=== PATIENT | female | born 1980 | race Caucasian/White ===

== ENCOUNTER 2018-12-14 10:23 | Emergency (ER) | payer MEDICARE, MEDICAID, SELFPAY ==
[2018-12-14 10:26] VITALS: BP 173/99; PULSE 110; PULSE 112; RESP 19; TEMP 37.2; O2SAT 98; BMI 26.9
--- NOTE | 2018-12-14 10:36 | CT_ITS ---
STUDY: CT ABDOMEN AND PELVIS WITH CONTRAST REASON FOR EXAM: Female, 38 years old. Abdominal pain. History of Crohn's disease and multiple bowel surgeries RADIATION DOSAGE (If Supplied By Facility): CTDIvol = ( 21.55 ) mGy, DLP = ( 1168.77 ) mGycm TECHNIQUE: Transaxial images were obtained from the dome of the diaphragm to the symphysis pubis without oral contrast. Isovue 300 100CC IV was administered. Sagittal and coronal images were reconstructed. Individualized dose optimization techniques were used for this CT. COMPARISON: None. FINDINGS: The visualized lung bases are unremarkable. The visualized portions of the heart are within normal limits. There is diffuse fatty infiltration of the liver. Normal gallbladder and extrahepatic biliary system. Normal spleen. Normal pancreas. Normal bilateral adrenal glands. Small right renal lower pole hypodense lesion is too small to characterize. Normal left kidney. Normal visualized stomach. There is a colonic enteric anastomosis. There is suggestion of mild wall thickening and mucosal hyperemia of the distal small bowel at the coloenteric anastomosis. No bowel obstruction. Normal abdominal aorta. Normal inferior vena cava. Normal retroperitoneum. Normal urinary bladder. The uterus is retroverted. There is a small focus of air within the endometrial canal, question recent instrumentation. Normal abdominal wall. There is a 5.7 x 2.7 cm osteochondroma from the posterior aspect of the proximal left femoral diaphysis. CT/Abdomen/Pelvis W IV Cont ONLY IMPRESSION: Suggestion of mild wall thickening and mucosal hyperemia of the distal small bowel at the coloenteric anastomosis, this may represent active inflammation in the setting of known Crohn's disease. No bowel obstruction. Osteochondroma noted at the posterior aspect of the proximal left femoral diaphysis. Hepatic steatosis. Electronically Signed: Brooke Saeed, at 13:01 EST Tel , Service support ,
[2018-12-14 11:11] LABS: Mucous, Urine 0 SEEN /hpf (<or=2+)
[2018-12-14 11:14] LABS: Color, Urine Yellow (Yellow); Glucose, Dipstick Normal (Normal); Ketone-Dipstick Negative (Negative); Leukocyte Esterase-Dipstick 100 /ul (Negative); Nitrite-Dipstick Negative (Negative); Occult Blood-Urine 10 /ul (Negative); Protein-Dipstick Negative (Negative); Urine Bilirubin Dipstick Negative (Negative); Urine Clarity Sl. Cloudy (Clear); Urine Urobilinogen Normal (Normal)
[2018-12-14 11:15] LABS: Internal QC Validated? YES +Cl - CLEAR BKGD; Pregnancy, Urine Negative Negative
[2018-12-14 11:20] LABS: Bacteria 1+ /hpf (None Seen); Red Blood Cells-Urine 0-5 SEEN /hpf (0-5); Squamous Epithelial Cells - UA 0-5 SEEN /hpf (5-10); White Blood Cells 10-25 SEEN /hpf (0-5)
[2018-12-14 11:24] LABS: Absolute Lymphocyte Count 3.64 X10^3/ul (0.83-4.51); Absolute Neutrophil Count 5.1 X10^3/uL (2.0-7.7); Basophil# 0.06 X10^3/uL; Basophil% 0.6 % (0-1); Eosinophil# 0.48 X10^3/uL; Eosinophils% 4.8 % (0-5); Hematocrit 39.1 % (37-47); Hemoglobin 12.3 g/dl (12.0-15.0); Lymphocyte # 3.64 X10^3/ul (4.0); Lymphocyte % 36.3 % (19-41); Mean Corp Hgb Conc 31.5 g/gl (32-36); Mean Corpuscular Hgb 28.3 pg (27.0-32.0); Mean Corpuscular Volume 89.9 fL (81-99); Monocyte# 0.62 X10^3/uL; Monocyte% 6.2 % (0-10); Neutrophil # 5.14 X10^3/uL (2.7-7.7); Neutrophil % 51.1 % (47-70); Platelet Count 308 K/mm3 (150-450); RBC Distribution Width CV 14.3 % (11.6-14.6); RBC Distribution Width SD 46.3 fl (35.1-43.9); Red Blood Count 4.35 M/mm3 (4.2-5.4)
--- NOTE | 2018-12-14 11:24 | ED.DCSUM_ITS ---
- ER Visit Summary Date of Service: 12/14/18 Chief Complaint: Abdominal pain History of Present Illness: The patient is a 38 F who has a history of Crohn's disease but is not on any medications presents with abdominal pain, nausea, and vomiting. Patient has a history of recurrent small bowel obstruction. She states that she last had which she was told was curative bowel surgery when she was in [place] 8 years ago. She recently moved up to the [facility]. She has not established with GI yet. She was on Humira for years ago, but has been out of medication since then. Over the past 2 days, she had increasing abdominal pain nausea, and vomiting. She states she had one episode of loose watery diarrhea. She states she felt very bloated. She denies any fevers or chills. Physical Examination: Vital signs reviewed General: Well-nourished, well-developed Head: Normocephalic, atraumatic Eyes: Pupils equal and reactive, extraocular muscles intact Neck, supple, no lymphadenopathy Heart: Regular rate and rhythm Respiratory: No distress, clear bilaterally Abdomen: Soft, distended and diffusely tender without rebound or guarding, no peritoneal signs Back: Nontender Extremities: Nontender, no edema, no cords Skin: Normal color no rash Neuro: Alert and oriented, no focal or lateralizing deficits Test Results: [] Emergency Department Course and Treatment: IV was established. The patient was given IV fluids and analgesics. She was also given antiemetics. Her pain improved but then returned. Labs were relatively unremarkable except for mildly decreased bicarb of 20 and a lactic of 2.7. My suspicion is that this is likely secondary to dehydration and her vomiting. She underwent CT of abdomen pelvis. It does show moderate Crohn's flare of the distal ileum. There is no evidence of small bowel obstruction. At this time, I do feel the patient is in require admission given her history of Crohn's disease and she is an active flare with nausea and vomiting. She is also dehydrated. Unfortunately, we do not have GI coverage. She has been without any GI medication or GI follow-up for over 4 years. She has rather significant Crohn's disease. I do feel that she would best be served at a tertiary facility. Patient was discussed with [facility]. Treatment Plan: [] Disposition: Transfer Impression: 1. Acute Crohn's exacerbation 2. Nausea vomiting 3. Lactic acidosis This note was generated with [employer] dictation software. It may contain incorrect words, spelling, and punctuation that were not noted in review of the chart prior to signing ED Disposition - Plan for ED Patient: Referrals: Care Physician,No Primary [Primary Care Provider] -
[2018-12-14 11:25] LABS: POSITIVE COUNT NO; POSITIVE DIFFERENTIAL NO; POSITIVE MORPHOLOGY NO
[2018-12-14] MEDS: 0.9% Normal Saline 1,000 ML 1000 ML IV (11:25)
[2018-12-14] MEDS: Ondansetron 4 MG/2 ML Vial IV (11:25)
[2018-12-14] MEDS: HYDROmorphone 1 MG/ML Syringe IV ×3 (11:32→16:16)
[2018-12-14 11:47] LABS: AST(SGOT) 39 U/L (15-37); Alanine Aminotransfer ALT/SGPT 50 U/L (13-56); Albumin, Serum 3.6 g/dL (3.2-5.0); Alkaline Phosphatase 110 U/L (45-117); Anion Gap 12 (5-15); BUN 9 mg/dL (7-18); BUN/Creat Ratio 13.5 RATIO (10-20); Calcium,Total 8.6 mg/dL (8.5-10.1); Chloride 108 mmol/L (98-107); Creatinine, Serum 0.67 mg/dL (0.55-1.02); EST Glomerular Filtration Rate 105 mL/min (>60); Est Glom Filt Rate - Afr Amer 127 mL/min (>60); Estimated Creatinine Clearance 118.98 ml/min; Globulin 3.6 g/dL (2.2-4.2); Glucose 84 mg/dL (74-106); Lipase 350 U/L (73-393); Potassium 4.3 mmol/L (3.5-5.1); Protein, Total 7.2 g/dL (6.4-8.2); Sodium Level 140 mmol/L (136-145)
[2018-12-14 11:49] LABS: Lactic Acid 2.7 mmol/L (0.4-2.0)
[2018-12-14] MEDS: MethylPREDNISolone 125 MG/2 ML Vial 60 MG IV (13:24)
[2018-12-14] MEDS: 0.9% Normal Saline 1,000 ML 999 ML IV (13:27)
[2018-12-14 13:28] VITALS: BP 140/99; PULSE 100; RESP 18; O2SAT 96
[2018-12-14 14:08] VITALS: BP 125/96; PULSE 102; RESP 18; O2SAT 98
--- NOTE | 2018-12-14 14:28 | NURSING ---
[facility] ER TO ER [phone]
--- NOTE | 2018-12-14 14:59 | NURSING ---
CALLED [facility]. ETA 45 MIN TO 1 HR
[2018-12-14 15:21] LABS: Reflex Lactate? Y
--- NOTE | 2018-12-14 16:18 | ED.RN ---
walked in to medicate pt for pain. pt eating a bag of chips. pt well aware of npo status. dr royal made aware. pt asked to get rid of chips. pt places back in bag
[2018-12-14 16:20] VITALS: BP 127/87; BP 133/93; PULSE 100; RESP 18; O2SAT 96; O2SAT 97
== END 2018-12-14 17:01 | disposition short-term general hospital (02) ==
PROVIDERS: Emergency Provider Emergency Medicine
DX: K50.90 Crohn's disease, unspecified, without complications (principal); R11.2 Nausea with vomiting, unspecified; E87.2 Acidosis; E86.0 Dehydration
CPT/HCPCS: 74177; 80053; 81001; 81025; 83605; 83690; 85025; 96361; 96365; 96375; 96376; 99284; J7030; Q9967; A4216; J2405

== ENCOUNTER 2019-01-15 17:52 | Emergency (ER) | payer MEDICARE, MEDICAID, SELFPAY ==
[2019-01-15 17:53] VITALS: BP 104/84; PULSE 127; RESP 18; TEMP 37.1; O2SAT 97; BMI 24.0
[2019-01-15 17:55] VITALS: BP 104/84; PULSE 127; RESP 18; TEMP 37.1; O2SAT 97
[2019-01-15 18:55] VITALS: BP 125/82; PULSE 108; RESP 13; TEMP 37; O2SAT 96
--- NOTE | 2019-01-15 18:58 | CT_ITS ---
STUDY: CT ABDOMEN AND PELVIS WITH CONTRAST REASON FOR EXAM: Female, 38 years old. Nausea and vomiting. Rectal bleeding. History of Crohn's disease. RADIATION DOSAGE (If Supplied By Facility): CTDIvol = ( 12.97 ) mGy, DLP = ( 725.86 ) mGycm TECHNIQUE: Transaxial images were obtained from the dome of the diaphragm to the symphysis pubis without oral contrast. 100ml ml of Isovue 370 contrast was administered. Sagittal and coronal images were reconstructed. Individualized dose optimization techniques were used for this CT. COMPARISON: 12/14/2018 FINDINGS: The visualized lung bases are clear. The visualized portions of the heart and pericardium are within normal limits. There are no calcified gallstones present. The liver is within normal limits. There are no suspicious hepatic lesions. The spleen is normal in size. The pancreas is within normal limits. The adrenal glands are within normal limits. There are no renal or ureteral stones. There is no hydronephrosis. There are no focal renal lesions. The patient is status post gastric sleeve procedure. There are postsurgical changes noted from prior bowel resection. There is no bowel obstruction. There is bowel thickening in the sigmoid colon which is consistent with colitis The appendix is not visualized, but there are no findings to suggest acute appendicitis. The aorta is normal in caliber. There is no abdominal or pelvic free air, free fluid, fluid collection or lymphadenopathy. There are no destructive osseous lesions. CT/Abdomen/Pelvis W IV Cont ONLY IMPRESSION: Colitis in the sigmoid colon. No bowel obstruction. No free air, free fluid or fluid collection. Electronically Signed: Gagan Jha, at 20:08 EDT Tel , Service support ,
[2019-01-15 19:00] VITALS: BP 123/94; PULSE 109; RESP 15; TEMP 36.9; O2SAT 98
--- NOTE | 2019-01-15 19:02 | ED.DCSUM_ITS ---
- ER Visit Summary Date of Service: 01/15/19 Chief Complaint: Abdominal pain History of Present Illness: The patient is a 38 F presenting with abdominal pain. Patient states she is having nausea and vomiting. She has been unable to tolerate p.o. for the past 3 days. She was recently admitted to [facility] and had a gastric sleeve per Dr. Hennessy on January 03. She was sent home on TPN. Since that time she has not been able to tolerate p.o. She started having blood in her stool as well today. She has history of Crohn's disease and has had blood in her stool in the past. She spoke with Dr. Hennsesy today was advised to come to the ED for further evaluation. Physical Examination: Vitals are stable. Patient is afebrile. Alert no acute distress. HEENT exam is unremarkable. Neck is supple. Lungs are clear and equal bilaterally. Heart is regular rate and rhythm. Abdomen is soft diffuse tenderness, voluntary guarding, no rebound Extremities are unremarkable. Skin is warm and dry. No focal neurologic deficit. Remainder of exam is unremarkable. Emergency Department Course and Treatment: Patient was given Dilaudid, Phenergan IV. CBC unremarkable other than hemoglobin 11.1. Chemistries unremarkable. Urinalysis unremarkable. CT abdomen pelvis with IV only contrast shows colitis in the sigmoid colon. No bowel obstruction. No free air, free fluid or fluid collection. On reevaluation, patient continues to have pain and nausea. She is given repeated doses of Dilaudid and Phenergan. She is still unable to tolerate p.o. Discussed with [facility] for transfer. Disposition: Transfer [facility] Impression: Postoperative abdominal pain, intractable nausea vomiting This note was generated with [employer] dictation software. It may contain incorrect words, spelling, and punctuation that were not noted in review of the chart prior to signing ED Disposition - Plan for ED Patient: Disposition: [facility] Referrals: Care Physician,No Primary [Primary Care Provider] -
[2019-01-15] MEDS: 0.9% Normal Saline 1,000 ML 1000 ML IV (19:21)
[2019-01-15] MEDS: proMETHazine 25 MG/ML Syringe 6.25 MG IV ×2 (19:21→22:17)
[2019-01-15] MEDS: HYDROmorphone 1 MG/ML Syringe IV ×2 (19:21→22:17)
[2019-01-15 19:35] LABS: Absolute Neutrophil Count 4.4 X10^3/uL (2.0-7.7); Basophil# 0.05 X10^3/uL; Basophil% 0.6 % (0-1); Eosinophils% 2.5 % (0-5); Hematocrit 34.3 % (37-47); Hemoglobin 11.1 g/dl (12.0-15.0); Lymphocyte % 34.7 % (19-41); Mean Corp Hgb Conc 32.4 g/gl (32-36); Mean Corpuscular Hgb 27.9 pg (27.0-32.0); Mean Corpuscular Volume 86.2 fL (81-99); Monocyte# 0.54 X10^3/uL; Monocyte% 6.7 % (0-10); Neutrophil # 4.41 X10^3/uL (2.7-7.7); Neutrophil % 54.6 % (47-70); Platelet Count 345 K/mm3 (150-450); RBC Distribution Width CV 13.6 % (11.6-14.6); RBC Distribution Width SD 42.1 fl (35.1-43.9); Red Blood Count 3.98 M/mm3 (4.2-5.4); White Blood Count 8.1 K/mm3 (4.4-11.0)
[2019-01-15 19:36] LABS: POSITIVE COUNT NO; POSITIVE DIFFERENTIAL NO; POSITIVE MORPHOLOGY NO
[2019-01-15 19:40] LABS: AST(SGOT) 12 U/L (15-37); Alanine Aminotransfer ALT/SGPT 19 U/L (13-56); Albumin, Serum 3.8 g/dL (3.2-5.0); Alkaline Phosphatase 116 U/L (45-117); Anion Gap 8 (5-15); BUN 18 mg/dL (7-18); BUN/Creat Ratio 30.4 RATIO (10-20); Calcium,Total 8.9 mg/dL (8.5-10.1); Chloride 110 mmol/L (98-107); Creatinine, Serum 0.59 mg/dL (0.55-1.02); EST Glomerular Filtration Rate 120 mL/min (>60); Est Glom Filt Rate - Afr Amer 146 mL/min (>60); Estimated Creatinine Clearance 135.11 ml/min; Globulin 3.7 g/dL (2.2-4.2); Glucose 83 mg/dL (74-106); Potassium 3.6 mmol/L (3.5-5.1); Protein, Total 7.5 g/dL (6.4-8.2); Sodium Level 141 mmol/L (136-145)
[2019-01-15 20:00] VITALS: BP 103/81; PULSE 108; RESP 16; TEMP 37.3; O2SAT 95
[2019-01-15 20:15] LABS: Lactic Acid 1.8 mmol/L (0.4-2.0)
[2019-01-15 20:46] LABS: Color, Urine Yellow (Yellow); Glucose, Dipstick Normal (Normal); Ketone-Dipstick Negative (Negative); Leukocyte Esterase-Dipstick 25 /ul (Negative); Mucous, Urine 0 SEEN /hpf (<or=2+); Nitrite-Dipstick Negative (Negative); Occult Blood-Urine Negative /ul (Negative); Protein-Dipstick 15 mg/dl (Negative); Red Blood Cells-Urine 0 SEEN /hpf (0-5); Urine Bilirubin Dipstick Negative (Negative); Urine Clarity Sl. Cloudy (Clear); Urine Urobilinogen Normal (Normal)
[2019-01-15 21:35] VITALS: BP 115/82; PULSE 110; RESP 14; TEMP 37.3; O2SAT 95
[2019-01-15 21:36] LABS: Bacteria RARE /hpf (None Seen); Squamous Epithelial Cells - UA 0-5 SEEN /hpf (5-10); White Blood Cells 0-5 SEEN /hpf (0-5)
== END 2019-01-15 22:40 | disposition short-term general hospital (02) ==
PROVIDERS: Emergency Provider Emergency Medicine
DX: R10.9 Unspecified abdominal pain (principal); G89.18 Other acute postprocedural pain; R11.2 Nausea with vomiting, unspecified; K52.9 Noninfective gastroenteritis and colitis, unspecified; Z98.84 Bariatric surgery status; K50.90 Crohn's disease, unspecified, without complications
CPT/HCPCS: 36592; 74177; 80053; 81001; 83605; 85025; 96361; 96374; 96375; 96376; 99283; J7030; Q9967; A4216

== ENCOUNTER 2019-02-28 10:24 | Emergency (ER) | payer MEDICARE, MEDICAID, SELFPAY ==
[2019-02-28 10:24] VITALS: BP 119/88; PULSE 109; RESP 18; TEMP 36.6; O2SAT 99; BMI 24.0
--- NOTE | 2019-02-28 10:44 | CT_ITS ---
STUDY: CT ABDOMEN AND PELVIS WITH CONTRAST REASON FOR EXAM: Female, 38 years old. Abdominal pain with nausea and vomiting. The patient has a history of Crohn's disease. Minimal small and large bowel resections. RADIATION DOSAGE (If Supplied By Facility): CTDIvol = ( 10.84 ) mGy, DLP = ( 649.31 ) mGycm TECHNIQUE: Transaxial images were obtained from the dome of the diaphragm to the symphysis pubis without oral contrast. 100mL IV Isovue 300 was administered. Sagittal and coronal images were reconstructed. Individualized dose optimization techniques were used for this CT. COMPARISON: Comparison is made with prior study dated January 15, 2019. FINDINGS: The visualized lung bases are unremarkable. The visualized portions of the heart are within normal limits. There is decreased attenuation of the liver consistent with steatosis. Normal gallbladder and extrahepatic biliary system. Normal spleen. Normal pancreas. Normal bilateral adrenal glands. Normal right kidney. Normal left kidney. The patient is status post gastric sleeve procedure. Postsurgical changes are seen in the right lower quadrant involving the terminal ileum and cecal region. There is stable mild degree of mural thickening of the cecum and proximal ascending colon with fluid within the bowel. Mild residual thickening of the rectosigmoid colon although this has improved as compared to prior study. There is non-visualization of the appendix. Normal abdominal aorta. Normal inferior vena cava. Normal retroperitoneum. Normal urinary bladder. There is absence of the uterus consistent with a prior hysterectomy. Normal abdominal wall. Normal osseous structures. CT/Abdomen/Pelvis W IV Cont ONLY IMPRESSION: Essentially stable examination. Mild residual thickening of the rectosigmoid colon. Electronically Signed: Hebert El, at 12:19 EDT , Service support ,
--- NOTE | 2019-02-28 10:51 | ED.VISSUMM ---
- ER Visit Summary Date of Service: 02/28/19 Chief Complaint: Abdominal pain, vomiting History of Present Illness: The patient is a 38 F who has a history of Crohn's disease as well as gastroparesis. She had a gastric sleeve surgery performed in December because a third of my stomach was . Patient was sent home on TPN and has been on that since her surgery. She was seen here in early January for colitis and was unable to tolerate anything by mouth. She was transferred to [facility] at that time. Patient states her abdominal pain and vomiting resolved but she does remain on TPN for nutrition. Her pain recurred 5 days ago, her abdomen feels bloated, and she is been unable to tolerate anything by mouth again with recurrent vomiting. She did have a bowel movement this morning. She reports subjective chills but has not measured a fever. Physical Examination: Blood pressure is 119/88, temperature 98, heart rate 109, respiratory rate 18, pulse ox 99% on room air. Head and neck examination is unremarkable. Heart is slightly tachycardic and regular. Lung sounds are clear. Abdomen is soft. Abdomen does appear slightly distended. She has upper abdominal tenderness on exam with no guarding or rebound. Hypoactive bowel sounds are present. Extremity examination reveals a PICC line in place in the left upper extremity. Test Results: CBC was normal white count differential. Hemoglobin is 11.3. Chemistry studies unremarkable. LFTs significant only for alk phos of 193. Lipase normal. Urinalysis shows no sign of acute infection. CT abdomen pelvis with IV contrast is essentially stable. There is mild residual thickening of the rectosigmoid colon. Emergency Department Course and Treatment: Patient was given Dilaudid and Phenergan along with IV fluids. On repeat evaluation she does feel improved. She will be given a short course of [place] and Zofran for pain at home. Treatment Plan: [] Disposition: Discharge Impression: 1. Vomiting, improved 2. Abdominal pain, uncertain etiology This note was generated with [employer] dictation software. It may contain incorrect words, spelling, and punctuation that were not noted in review of the chart prior to signing ED Disposition - Plan for ED Patient: Disposition: Home or Assisted Living Instructions: ED Abdominal Pain Unkn Cause Prescriptions: Hydrocodone Bitart/Apap 5-325 [[place] 5MG-325MG] 1 tablet PO Q6H PRN PRN 3 Days #10 tablet PRN Reason: Pain Ondansetron [Zofran Odt] 4 mg PO Q8H PRN PRN #10 tablet PRN Reason: Nausea Additional Instructions: Follow-up with your surgeon in [place] in 1-2 weeks
[2019-02-28] MEDS: 0.9% Normal Saline 1,000 ML 150 ML IV (11:05)
[2019-02-28] MEDS: HYDROmorphone 1 MG/ML Syringe 0.5 MG IV (11:05)
[2019-02-28] MEDS: proMETHazine 25 MG/ML Syringe 12.5 MG IV ×2 (11:06→13:23)
[2019-02-28 11:37] LABS: Absolute Lymphocyte Count 3.46 X10^3/ul (0.83-4.51); Absolute Neutrophil Count 5.1 X10^3/uL (2.0-7.7); Basophil# 0.06 X10^3/uL; Basophil% 0.6 % (0-1); Eosinophil# 0.32 X10^3/uL; Eosinophils% 3.3 % (0-5); Hematocrit 35.3 % (37-47); Hemoglobin 11.3 g/dl (12.0-15.0); Lymphocyte # 3.46 X10^3/ul (4.0); Lymphocyte % 35.7 % (19-41); Mean Corpuscular Hgb 26.8 pg (27.0-32.0); Mean Corpuscular Volume 83.8 fL (81-99); Mean Platelet Vol. 10.2 fl (6.2-12.0); Monocyte# 0.71 X10^3/uL; Monocyte% 7.3 % (0-10); Neutrophil # 5.13 X10^3/uL (2.7-7.7); Neutrophil % 52.9 % (47-70); POSITIVE COUNT NO; POSITIVE DIFFERENTIAL NO; POSITIVE MORPHOLOGY NO; Platelet Count 253 K/mm3 (150-450); RBC Distribution Width CV 13.7 % (11.6-14.6); RBC Distribution Width SD 41.6 fl (35.1-43.9); Red Blood Count 4.21 M/mm3 (4.2-5.4); White Blood Count 9.7 K/mm3 (4.4-11.0)
[2019-02-28 11:44] LABS: AST(SGOT) 14 U/L (15-37); Alanine Aminotransfer ALT/SGPT 33 U/L (13-56); Albumin, Serum 3.5 g/dL (3.2-5.0); Alkaline Phosphatase 193 U/L (45-117); Anion Gap 7 (5-15); BUN 20 mg/dL (7-18); BUN/Creat Ratio 36.9 RATIO (10-20); Bilirubin, Direct 0.09 mg/dL (0.00-0.30); Calcium,Total 8.9 mg/dL (8.5-10.1); Chloride 107 mmol/L (98-107); Creatinine, Serum 0.54 mg/dL (0.55-1.02); EST Glomerular Filtration Rate 133 mL/min (>60); Est Glom Filt Rate - Afr Amer 161 mL/min (>60); Estimated Creatinine Clearance 142.49 ml/min; Globulin 4.2 g/dL (2.2-4.2); Glucose 94 mg/dL (74-106); Lipase 320 U/L (73-393); Potassium 4.1 mmol/L (3.5-5.1); Protein, Total 7.7 g/dL (6.4-8.2); Sodium Level 138 mmol/L (136-145)
[2019-02-28 13:12] LABS: Mucous, Urine 0 SEEN /hpf (<or=2+); Red Blood Cells-Urine 0 SEEN /hpf (0-5)
[2019-02-28 13:14] LABS: Color, Urine Yellow (Yellow); Glucose, Dipstick Normal (Normal); Ketone-Dipstick Negative (Negative); Leukocyte Esterase-Dipstick 500 /ul (Negative); Nitrite-Dipstick Negative (Negative); Occult Blood-Urine Negative /ul (Negative); Protein-Dipstick 15 mg/dl (Negative); Urine Bilirubin Dipstick Negative (Negative); Urine Clarity Sl. Cloudy (Clear); Urine Urobilinogen Normal (Normal)
[2019-02-28 13:18] VITALS: RESP 18
[2019-02-28 13:22] LABS: Bacteria RARE /hpf (None Seen); Squamous Epithelial Cells - UA 0-5 SEEN /hpf (5-10); White Blood Cells 0-5 SEEN /hpf (0-5)
[2019-02-28] MEDS: HYDROmorphone 0.5 MG/0.5 ML SYRINGE IV (13:24)
[2019-02-28 14:52] VITALS: PULSE 74; RESP 16; O2SAT 97
== END 2019-02-28 14:55 | disposition home or self-care (01) ==
PROVIDERS: Emergency Provider Emergency Medicine
DX: R10.9 Unspecified abdominal pain (principal); R11.2 Nausea with vomiting, unspecified; K50.90 Crohn's disease, unspecified, without complications; K31.84 Gastroparesis
CPT/HCPCS: 36592; 74177; 80048; 80076; 81001; 83690; 85025; 96361; 96374; 96375; 96376; 99282; J7030; Q9967; A4216

== ENCOUNTER → 2019-05-01 12:39 | Outpatient (CLI) | payer MEDICARE, MEDICAID, SELFPAY ==
[2019-05-01 13:16] LABS: Hematocrit 30.8 % (37-47); Hemoglobin 9.9 g/dL (12.0-15.0); Mean Corp Hgb Conc 32.1 g/dL (32-36); Mean Corpuscular Hgb 25.8 pg (27.0-32.0); Mean Corpuscular Volume 80.4 fL (81-99); Platelet Count 293 K/mm3 (150-450); RBC Distribution Width CV 15.2 % (11.6-14.6); RBC Distribution Width SD 43.9 fl (35.1-43.9); Red Blood Count 3.83 M/mm3 (4.2-5.4); White Blood Count 8.4 K/mm3 (4.4-11.0)
[2019-05-01 13:31] LABS: ALB/GLOB Ratio 0.9 RATIO (0.9-2.4); AST(SGOT) 8 U/L (15-37); Alanine Aminotransfer ALT/SGPT 19 U/L (13-56); Albumin, Serum 3.5 g/dL (3.2-5.0); Alkaline Phosphatase 164 U/L (45-117); Anion Gap 7 (5-15); BUN 23 mg/dL (7-18); BUN/Creat Ratio 44.7 RATIO (10-20); Calcium,Total 8.7 mg/dL (8.5-10.1); Chloride 108 mmol/L (98-107); Creatinine, Serum 0.52 mg/dL (0.55-1.02); EST Glomerular Filtration Rate 141 mL/min (>60); Est Glom Filt Rate - Afr Amer 171 mL/min (>60); Globulin 3.8 g/dL (2.2-4.2); Glucose 96 mg/dL (74-106); Magnesium 2.2 mg/dL (1.6-2.6); Potassium 3.8 mmol/L (3.5-5.1); Protein, Total 7.3 g/dL (6.4-8.2); Sodium Level 140 mmol/L (136-145); Triglycerides 91 mg/dL
== END ==
PROVIDERS: Referring Provider Physician Assistant; Visit Provider Physician Assistant
DX: K31.84 Gastroparesis (principal)
CPT/HCPCS: 36592; 80053; 83735; 84100; 84478; 85027; A4216

== ENCOUNTER → 2019-05-10 08:41 | Outpatient (CLI) | payer MEDICARE, MEDICAID, SELFPAY ==
[2019-05-10 09:41] LABS: Hematocrit 30.7 % (37-47); Hemoglobin 9.5 g/dL (12.0-15.0); Mean Corp Hgb Conc 30.9 g/dL (32-36); Mean Corpuscular Hgb 24.6 pg (27.0-32.0); Mean Corpuscular Volume 79.5 fL (81-99); Mean Platelet Vol. 10.3 fl (6.2-12.0); Platelet Count 289 K/mm3 (150-450); RBC Distribution Width CV 15.9 % (11.6-14.6); RBC Distribution Width SD 45.1 fl (35.1-43.9); Red Blood Count 3.86 M/mm3 (4.2-5.4); White Blood Count 7.7 K/mm3 (4.4-11.0)
[2019-05-10 09:56] LABS: ALB/GLOB Ratio 0.9 RATIO (0.9-2.4); AST(SGOT) 11 U/L (15-37); Alanine Aminotransfer ALT/SGPT 28 U/L (13-56); Albumin, Serum 3.4 g/dL (3.2-5.0); Alkaline Phosphatase 176 U/L (45-117); Anion Gap 8 (5-15); BUN 20 mg/dL (7-18); BUN/Creat Ratio 31.4 RATIO (10-20); Calcium,Total 8.8 mg/dL (8.5-10.1); Chloride 109 mmol/L (98-107); Creatinine, Serum 0.64 mg/dL (0.55-1.02); EST Glomerular Filtration Rate 110 mL/min (>60); Est Glom Filt Rate - Afr Amer 134 mL/min (>60); Globulin 3.9 g/dL (2.2-4.2); Glucose 95 mg/dL (74-106); Magnesium 1.9 mg/dL (1.6-2.6); Phosphorus 4.9 mg/dL (2.5-4.9); Potassium 3.5 mmol/L (3.5-5.1); Protein, Total 7.3 g/dL (6.4-8.2); Sodium Level 142 mmol/L (136-145); Triglycerides 68 mg/dL
== END ==
PROVIDERS: Family Provider Internal Medicine; PCP Internal Medicine; Referring Provider Physician Assistant; Visit Provider Physician Assistant
DX: Z45.2 Encounter for adjustment and management of vascular access device (principal); K56.609 Unspecified intestinal obstruction, unspecified as to partial versus complete obstruction; K31.84 Gastroparesis; E43 Unspecified severe protein-calorie malnutrition
CPT/HCPCS: 36592; 80053; 83735; 84100; 84478; 85027; A4216

== ENCOUNTER → 2019-05-17 15:05 | Outpatient (CLI) | payer MEDICARE, SELFPAY ==
[2019-05-17 16:02] LABS: Hematocrit 29.6 % (37-47); Hemoglobin 9.2 g/dL (12.0-15.0); Mean Corp Hgb Conc 31.1 g/dL (32-36); Mean Corpuscular Hgb 24.7 pg (27.0-32.0); Mean Corpuscular Volume 79.6 fL (81-99); Mean Platelet Vol. 10.6 fl (6.2-12.0); Platelet Count 197 K/mm3 (150-450); RBC Distribution Width CV 16.1 % (11.6-14.6); RBC Distribution Width SD 46.4 fl (35.1-43.9); Red Blood Count 3.72 M/mm3 (4.2-5.4); White Blood Count 6.8 K/mm3 (4.4-11.0)
[2019-05-17 16:10] LABS: ALB/GLOB Ratio 0.9 RATIO (0.9-2.4); AST(SGOT) 10 U/L (15-37); Alanine Aminotransfer ALT/SGPT 19 U/L (13-56); Albumin, Serum 3.3 g/dL (3.2-5.0); Alkaline Phosphatase 152 U/L (45-117); Anion Gap 7 (5-15); BUN 21 mg/dL (7-18); BUN/Creat Ratio 37.7 RATIO (10-20); Calcium,Total 8.5 mg/dL (8.5-10.1); Chloride 111 mmol/L (98-107); Creatinine, Serum 0.56 mg/dL (0.55-1.02); EST Glomerular Filtration Rate 129 mL/min (>60); Est Glom Filt Rate - Afr Amer 156 mL/min (>60); Globulin 3.8 g/dL (2.2-4.2); Glucose 92 mg/dL (74-106); Phosphorus 2.9 mg/dL (2.5-4.9); Protein, Total 7.1 g/dL (6.4-8.2); Sodium Level 142 mmol/L (136-145); Triglycerides 46 mg/dL
== END ==
PROVIDERS: Referring Provider Physician Assistant; Visit Provider Physician Assistant
DX: Z45.2 Encounter for adjustment and management of vascular access device (principal); K56.609 Unspecified intestinal obstruction, unspecified as to partial versus complete obstruction; K31.84 Gastroparesis; E43 Unspecified severe protein-calorie malnutrition
CPT/HCPCS: 80053; 83735; 84100; 84478; 85027; A4216

== ENCOUNTER → 2019-05-22 10:33 | Outpatient (CLI) | payer MEDICARE, MEDICAID, SELFPAY ==
[2019-05-18 17:42] VITALS: BMI 21.5
[2019-05-22 11:09] LABS: Hematocrit 29.7 % (37-47); Hemoglobin 9.3 g/dL (12.0-15.0); Mean Corp Hgb Conc 31.3 g/dL (32-36); Mean Corpuscular Volume 79.8 fL (81-99); Platelet Count 202 K/mm3 (150-450); RBC Distribution Width CV 15.9 % (11.6-14.6); RBC Distribution Width SD 45.6 fl (35.1-43.9); Red Blood Count 3.72 M/mm3 (4.2-5.4); White Blood Count 7.9 K/mm3 (4.4-11.0)
[2019-05-22 11:25] LABS: ALB/GLOB Ratio 0.8 RATIO (0.9-2.4); AST(SGOT) 18 U/L (15-37); Alanine Aminotransfer ALT/SGPT 58 U/L (13-56); Albumin, Serum 3.2 g/dL (3.2-5.0); Alkaline Phosphatase 171 U/L (45-117); Anion Gap 5 (5-15); BUN 20 mg/dL (7-18); BUN/Creat Ratio 40.2 RATIO (10-20); Calcium,Total 8.2 mg/dL (8.5-10.1); Chloride 109 mmol/L (98-107); EST Glomerular Filtration Rate 147 mL/min (>60); Est Glom Filt Rate - Afr Amer 178 mL/min (>60); Globulin 3.8 g/dL (2.2-4.2); Glucose 89 mg/dL (74-106); Magnesium 2.1 mg/dL (1.6-2.6); Phosphorus 3.5 mg/dL (2.5-4.9); Sodium Level 140 mmol/L (136-145); Triglycerides 73 mg/dL
== END ==
PROVIDERS: PCP Internal Medicine; Referring Provider Physician Assistant; Visit Provider Physician Assistant
DX: Z45.2 Encounter for adjustment and management of vascular access device (principal); K56.609 Unspecified intestinal obstruction, unspecified as to partial versus complete obstruction; K31.84 Gastroparesis; E43 Unspecified severe protein-calorie malnutrition
CPT/HCPCS: 36591; 80053; 83735; 84100; 84478; 85027; A4216

== ENCOUNTER → 2019-05-30 11:55 | Outpatient (CLI) | payer MEDICARE, MEDICAID, SELFPAY ==
[2019-05-18 17:42] VITALS: BMI 21.5
[2019-05-30 12:55] LABS: Hematocrit 30.3 % (37-47); Hemoglobin 9.4 g/dL (12.0-15.0); Mean Corpuscular Hgb 24.5 pg (27.0-32.0); Mean Corpuscular Volume 79.1 fL (81-99); Mean Platelet Vol. 10.7 fl (6.2-12.0); Platelet Count 271 K/mm3 (150-450); RBC Distribution Width CV 16.2 % (11.6-14.6); RBC Distribution Width SD 46.1 fl (35.1-43.9); Red Blood Count 3.83 M/mm3 (4.2-5.4); White Blood Count 7.5 K/mm3 (4.4-11.0)
[2019-05-30 13:13] LABS: ALB/GLOB Ratio 0.8 RATIO (0.9-2.4); AST(SGOT) 28 U/L (15-37); Alanine Aminotransfer ALT/SGPT 104 U/L (13-56); Albumin, Serum 3.2 g/dL (3.2-5.0); Alkaline Phosphatase 203 U/L (45-117); Anion Gap 7 (5-15); BUN 19 mg/dL (7-18); BUN/Creat Ratio 34.1 RATIO (10-20); Calcium,Total 8.4 mg/dL (8.5-10.1); Chloride 110 mmol/L (98-107); Creatinine, Serum 0.56 mg/dL (0.55-1.02); EST Glomerular Filtration Rate 129 mL/min (>60); Est Glom Filt Rate - Afr Amer 156 mL/min (>60); Glucose 86 mg/dL (74-106); Magnesium 2.3 mg/dL (1.6-2.6); Phosphorus 3.3 mg/dL (2.5-4.9); Protein, Total 7.2 g/dL (6.4-8.2); Sodium Level 141 mmol/L (136-145); Triglycerides 93 mg/dL
== END ==
PROVIDERS: PCP Internal Medicine; Referring Provider Physician Assistant; Visit Provider Physician Assistant
DX: Z45.2 Encounter for adjustment and management of vascular access device (principal); E43 Unspecified severe protein-calorie malnutrition
CPT/HCPCS: 36592; 80053; 83735; 84100; 84478; 85027; A4216

== ENCOUNTER → 2019-06-05 13:51 | Outpatient (CLI) | payer MEDICARE, MEDICAID, SELFPAY ==
[2019-05-18 17:42] VITALS: BMI 21.5
[2019-06-05 14:33] LABS: Hematocrit 30.1 % (37-47); Hemoglobin 9.3 g/dL (12.0-15.0); Mean Corp Hgb Conc 30.9 g/dL (32-36); Mean Corpuscular Hgb 24.5 pg (27.0-32.0); Mean Corpuscular Volume 79.4 fL (81-99); Mean Platelet Vol. 10.9 fl (6.2-12.0); Platelet Count 244 K/mm3 (150-450); RBC Distribution Width CV 16.5 % (11.6-14.6); RBC Distribution Width SD 46.5 fl (35.1-43.9); Red Blood Count 3.79 M/mm3 (4.2-5.4); White Blood Count 6.5 K/mm3 (4.4-11.0)
[2019-06-05 14:47] LABS: ALB/GLOB Ratio 0.8 RATIO (0.9-2.4); AST(SGOT) 16 U/L (15-37); Albumin, Serum 3.2 g/dL (3.2-5.0); Alkaline Phosphatase 192 U/L (45-117); BUN 19 mg/dL (7-18); BUN/Creat Ratio 30.9 RATIO (10-20); Calcium,Total 8.4 mg/dL (8.5-10.1); Creatinine, Serum 0.62 mg/dL (0.55-1.02); EST Glomerular Filtration Rate 115 mL/min (>60); Est Glom Filt Rate - Afr Amer 139 mL/min (>60); Glucose 97 mg/dL (74-106); Phosphorus 2.9 mg/dL (2.5-4.9); Protein, Total 7.2 g/dL (6.4-8.2)
[2019-06-05 14:48] LABS: Alanine Aminotransfer ALT/SGPT 69 U/L (13-56); Anion Gap 10 (5-15); Chloride 113 mmol/L (98-107); Magnesium 2.1 mg/dL (1.6-2.6); Potassium 3.4 mmol/L (3.5-5.1); Sodium Level 145 mmol/L (136-145); Triglycerides 86 mg/dL
== END ==
PROVIDERS: PCP Internal Medicine; Referring Provider Physician Assistant; Visit Provider Physician Assistant
DX: Z45.2 Encounter for adjustment and management of vascular access device (principal); K56.609 Unspecified intestinal obstruction, unspecified as to partial versus complete obstruction; K31.84 Gastroparesis; E43 Unspecified severe protein-calorie malnutrition
CPT/HCPCS: 36592; 80053; 83735; 84100; 84478; 85027; A4216

== ENCOUNTER → 2019-06-15 13:23 | Outpatient (CLI) | payer MEDICARE, MEDICAID, SELFPAY ==
[2019-05-18 17:42] VITALS: BMI 21.5
[2019-06-15 14:12] LABS: Hematocrit 29.8 % (37-47); Hemoglobin 9.1 g/dL (12.0-15.0); Mean Corp Hgb Conc 30.5 g/dL (32-36); Mean Corpuscular Hgb 24.1 pg (27.0-32.0); Mean Corpuscular Volume 78.8 fL (81-99); Mean Platelet Vol. 10.4 fl (6.2-12.0); Platelet Count 294 K/mm3 (150-450); RBC Distribution Width SD 47.8 fl (35.1-43.9); Red Blood Count 3.78 M/mm3 (4.2-5.4); White Blood Count 7.8 K/mm3 (4.4-11.0)
[2019-06-15 14:30] LABS: ALB/GLOB Ratio 0.7 RATIO (0.9-2.4); AST(SGOT) 9 U/L (15-37); Alanine Aminotransfer ALT/SGPT 28 U/L (13-56); Albumin, Serum 3.1 g/dL (3.2-5.0); Alkaline Phosphatase 186 U/L (45-117); Anion Gap 6 (5-15); BUN 20 mg/dL (7-18); BUN/Creat Ratio 36.6 RATIO (10-20); Calcium,Total 8.5 mg/dL (8.5-10.1); Chloride 110 mmol/L (98-107); Creatinine, Serum 0.55 mg/dL (0.55-1.02); EST Glomerular Filtration Rate 132 mL/min (>60); Est Glom Filt Rate - Afr Amer 159 mL/min (>60); Globulin 4.2 g/dL (2.2-4.2); Glucose 91 mg/dL (74-106); Magnesium 2.1 mg/dL (1.6-2.6); Phosphorus 3.2 mg/dL (2.5-4.9); Potassium 4.1 mmol/L (3.5-5.1); Protein, Total 7.3 g/dL (6.4-8.2); Sodium Level 141 mmol/L (136-145); Triglycerides 71 mg/dL
== END ==
PROVIDERS: PCP Internal Medicine; Referring Provider Physician Assistant; Visit Provider Physician Assistant
DX: Z45.2 Encounter for adjustment and management of vascular access device (principal); K56.609 Unspecified intestinal obstruction, unspecified as to partial versus complete obstruction; K31.84 Gastroparesis; E43 Unspecified severe protein-calorie malnutrition
CPT/HCPCS: 36592; 80053; 83735; 84100; 84478; 85027; A4216

== ENCOUNTER → 2019-06-19 13:56 | Outpatient (CLI) | payer MEDICARE, MEDICAID, SELFPAY ==
[2019-05-18 17:42] VITALS: BMI 21.5
[2019-06-19 14:38] LABS: Hemoglobin 9.4 g/dL (12.0-15.0); Mean Corp Hgb Conc 30.3 g/dL (32-36); Mean Corpuscular Volume 79.1 fL (81-99); Platelet Count 329 K/mm3 (150-450); RBC Distribution Width CV 16.4 % (11.6-14.6); RBC Distribution Width SD 46.7 fl (35.1-43.9); Red Blood Count 3.92 M/mm3 (4.2-5.4); White Blood Count 7.2 K/mm3 (4.4-11.0)
[2019-06-19 14:53] LABS: ALB/GLOB Ratio 0.8 RATIO (0.9-2.4); AST(SGOT) 11 U/L (15-37); Alanine Aminotransfer ALT/SGPT 22 U/L (13-56); Albumin, Serum 3.2 g/dL (3.2-5.0); Alkaline Phosphatase 170 U/L (45-117); Anion Gap 7 (5-15); BUN 20 mg/dL (7-18); BUN/Creat Ratio 35.7 RATIO (10-20); Calcium,Total 8.3 mg/dL (8.5-10.1); Chloride 109 mmol/L (98-107); Creatinine, Serum 0.56 mg/dL (0.55-1.02); EST Glomerular Filtration Rate 128 mL/min (>60); Est Glom Filt Rate - Afr Amer 155 mL/min (>60); Glucose 86 mg/dL (74-106); Magnesium 2.1 mg/dL (1.6-2.6); Phosphorus 3.5 mg/dL (2.5-4.9); Protein, Total 7.2 g/dL (6.4-8.2); Sodium Level 140 mmol/L (136-145); Triglycerides 49 mg/dL
== END ==
PROVIDERS: Family Provider Internal Medicine; PCP Internal Medicine; Referring Provider Physician Assistant; Visit Provider Physician Assistant
DX: Z45.2 Encounter for adjustment and management of vascular access device (principal); K56.609 Unspecified intestinal obstruction, unspecified as to partial versus complete obstruction; K31.84 Gastroparesis; E43 Unspecified severe protein-calorie malnutrition
CPT/HCPCS: 36415; 36592; 80053; 83735; 84100; 84478; 85027; A4216

== ENCOUNTER → 2019-06-27 13:01 | Outpatient (CLI) | payer MEDICARE, MEDICAID, SELFPAY ==
[2019-06-21 13:27] VITALS: BMI 21.5
[2019-06-27 13:55] LABS: Hemoglobin 9.4 g/dL (12.0-15.0); Mean Corp Hgb Conc 30.3 g/dL (32-36); Mean Corpuscular Hgb 23.8 pg (27.0-32.0); Mean Corpuscular Volume 78.5 fL (81-99); Mean Platelet Vol. 10.2 fl (6.2-12.0); Platelet Count 290 K/mm3 (150-450); RBC Distribution Width CV 16.2 % (11.6-14.6); RBC Distribution Width SD 45.9 fl (35.1-43.9); Red Blood Count 3.95 M/mm3 (4.2-5.4); White Blood Count 7.1 K/mm3 (4.4-11.0)
[2019-06-27 14:12] LABS: ALB/GLOB Ratio 0.8 RATIO (0.9-2.4); AST(SGOT) 12 U/L (15-37); Alanine Aminotransfer ALT/SGPT 26 U/L (13-56); Albumin, Serum 3.2 g/dL (3.2-5.0); Alkaline Phosphatase 177 U/L (45-117); Anion Gap 6 (5-15); BUN 19 mg/dL (7-18); BUN/Creat Ratio 33.9 RATIO (10-20); Calcium,Total 8.5 mg/dL (8.5-10.1); Chloride 108 mmol/L (98-107); Creatinine, Serum 0.56 mg/dL (0.55-1.02); EST Glomerular Filtration Rate 128 mL/min (>60); Est Glom Filt Rate - Afr Amer 155 mL/min (>60); Globulin 3.9 g/dL (2.2-4.2); Glucose 88 mg/dL (74-106); Magnesium 2.2 mg/dL (1.6-2.6); Phosphorus 3.9 mg/dL (2.5-4.9); Potassium 4.3 mmol/L (3.5-5.1); Protein, Total 7.1 g/dL (6.4-8.2); Sodium Level 140 mmol/L (136-145); Triglycerides 67 mg/dL
== END ==
PROVIDERS: Family Provider Internal Medicine; PCP Internal Medicine; Referring Provider Physician Assistant; Visit Provider Physician Assistant
DX: Z45.2 Encounter for adjustment and management of vascular access device (principal); K56.609 Unspecified intestinal obstruction, unspecified as to partial versus complete obstruction; K31.84 Gastroparesis; E43 Unspecified severe protein-calorie malnutrition
CPT/HCPCS: 36592; 80053; 83735; 84100; 84478; 85027; A4216

== ENCOUNTER → 2019-07-03 12:41 | Outpatient (CLI) | payer MEDICARE, MEDICAID, SELFPAY ==
[2019-06-21 13:27] VITALS: BMI 21.5
[2019-07-03 13:28] LABS: Hematocrit 31.4 % (37-47); Hemoglobin 9.4 g/dL (12.0-15.0); Mean Corp Hgb Conc 29.9 g/dL (32-36); Mean Corpuscular Hgb 23.1 pg (27.0-32.0); Mean Corpuscular Volume 77.1 fL (81-99); Platelet Count 237 K/mm3 (150-450); RBC Distribution Width CV 16.5 % (11.6-14.6); RBC Distribution Width SD 46.1 fl (35.1-43.9); Red Blood Count 4.07 M/mm3 (4.2-5.4)
[2019-07-03 13:45] LABS: ALB/GLOB Ratio 0.9 RATIO (0.9-2.4); AST(SGOT) 18 U/L (15-37); Alanine Aminotransfer ALT/SGPT 31 U/L (13-56); Albumin, Serum 3.5 g/dL (3.2-5.0); Alkaline Phosphatase 194 U/L (45-117); Anion Gap 7 (5-15); BUN 19 mg/dL (7-18); BUN/Creat Ratio 27.9 RATIO (10-20); Calcium,Total 8.9 mg/dL (8.5-10.1); Chloride 108 mmol/L (98-107); Creatinine, Serum 0.68 mg/dL (0.55-1.02); EST Glomerular Filtration Rate 102 mL/min (>60); Est Glom Filt Rate - Afr Amer 124 mL/min (>60); Globulin 4.1 g/dL (2.2-4.2); Glucose 85 mg/dL (74-106); Magnesium 1.9 mg/dL (1.6-2.6); Phosphorus 4.5 mg/dL (2.5-4.9); Potassium 3.4 mmol/L (3.5-5.1); Protein, Total 7.6 g/dL (6.4-8.2); Sodium Level 141 mmol/L (136-145); Triglycerides 119 mg/dL
== END ==
PROVIDERS: Family Provider Internal Medicine; PCP Internal Medicine; Referring Provider Physician Assistant; Visit Provider Physician Assistant
DX: Z45.2 Encounter for adjustment and management of vascular access device (principal); K56.609 Unspecified intestinal obstruction, unspecified as to partial versus complete obstruction; K31.84 Gastroparesis; E43 Unspecified severe protein-calorie malnutrition
CPT/HCPCS: 36592; 80053; 83735; 84100; 84478; 85027; A4216

== ENCOUNTER → 2019-07-11 12:40 | Outpatient (CLI) | payer MEDICARE, MEDICAID, SELFPAY ==
[2019-06-21 13:27] VITALS: BMI 21.5
[2019-07-11 13:04] LABS: Hematocrit 29.7 % (37-47); Hemoglobin 9.1 g/dL (12.0-15.0); Mean Corp Hgb Conc 30.6 g/dL (32-36); Mean Corpuscular Volume 78.4 fL (81-99); Mean Platelet Vol. 9.9 fl (6.2-12.0); Platelet Count 253 K/mm3 (150-450); RBC Distribution Width SD 49.1 fl (35.1-43.9); Red Blood Count 3.79 M/mm3 (4.2-5.4); White Blood Count 5.9 K/mm3 (4.4-11.0)
[2019-07-11 13:21] LABS: AST(SGOT) 10 U/L (15-37); Alanine Aminotransfer ALT/SGPT 15 U/L (13-56); Albumin, Serum 3.4 g/dL (3.2-5.0); Alkaline Phosphatase 157 U/L (45-117); Anion Gap 10 (5-15); BUN 14 mg/dL (7-18); BUN/Creat Ratio 24.1 RATIO (10-20); Calcium,Total 8.5 mg/dL (8.5-10.1); Chloride 110 mmol/L (98-107); Creatinine, Serum 0.58 mg/dL (0.55-1.02); EST Glomerular Filtration Rate 122 mL/min (>60); Est Glom Filt Rate - Afr Amer 148 mL/min (>60); Globulin 3.5 g/dL (2.2-4.2); Glucose 89 mg/dL (74-106); Magnesium 2.1 mg/dL (1.6-2.6); Phosphorus 3.6 mg/dL (2.5-4.9); Potassium 3.7 mmol/L (3.5-5.1); Protein, Total 6.9 g/dL (6.4-8.2); Sodium Level 145 mmol/L (136-145); Triglycerides 81 mg/dL
== END ==
PROVIDERS: Family Provider Internal Medicine; PCP Internal Medicine; Referring Provider Physician Assistant; Visit Provider Physician Assistant
DX: Z45.2 Encounter for adjustment and management of vascular access device (principal); K56.609 Unspecified intestinal obstruction, unspecified as to partial versus complete obstruction; K31.84 Gastroparesis; E43 Unspecified severe protein-calorie malnutrition
CPT/HCPCS: 36415; 36592; 80053; 83735; 84100; 84478; 85027; A4216

== ENCOUNTER → 2019-07-17 | Outpatient (CLI) | payer MEDICARE, MEDICAID, SELFPAY ==
[2019-06-21 13:27] VITALS: BMI 21.5
[2019-07-17 13:26] LABS: Hematocrit 30.7 % (37-47); Hemoglobin 9.4 g/dL (12.0-15.0); Mean Corp Hgb Conc 30.6 g/dL (32-36); Mean Corpuscular Hgb 23.6 pg (27.0-32.0); Mean Corpuscular Volume 76.9 fL (81-99); Mean Platelet Vol. 9.9 fl (6.2-12.0); Platelet Count 273 K/mm3 (150-450); RBC Distribution Width SD 50.1 fl (35.1-43.9); Red Blood Count 3.99 M/mm3 (4.2-5.4); White Blood Count 5.3 K/mm3 (4.4-11.0)
[2019-07-17 13:45] LABS: ALB/GLOB Ratio 0.9 RATIO (0.9-2.4); AST(SGOT) 12 U/L (15-37); Alanine Aminotransfer ALT/SGPT 21 U/L (13-56); Albumin, Serum 3.4 g/dL (3.2-5.0); Alkaline Phosphatase 178 U/L (45-117); Anion Gap 8 (5-15); BUN 16 mg/dL (7-18); BUN/Creat Ratio 24.8 RATIO (10-20); Calcium,Total 8.7 mg/dL (8.5-10.1); Chloride 107 mmol/L (98-107); Creatinine, Serum 0.64 mg/dL (0.55-1.02); EST Glomerular Filtration Rate 109 mL/min (>60); Est Glom Filt Rate - Afr Amer 132 mL/min (>60); Globulin 3.9 g/dL (2.2-4.2); Glucose 96 mg/dL (74-106); Phosphorus 3.9 mg/dL (2.5-4.9); Potassium 3.6 mmol/L (3.5-5.1); Protein, Total 7.3 g/dL (6.4-8.2); Sodium Level 139 mmol/L (136-145); Triglycerides 116 mg/dL
== END | disposition home or self-care (01) ==
LOC: MEDOUTP 12:39
PROVIDERS: Family Provider Internal Medicine; PCP Internal Medicine; Referring Provider Physician Assistant; Visit Provider Physician Assistant
DX: K56.609 Unspecified intestinal obstruction, unspecified as to partial versus complete obstruction (principal); E43 Unspecified severe protein-calorie malnutrition; K31.84 Gastroparesis; Z45.2 Encounter for adjustment and management of vascular access device
CPT/HCPCS: 36592; 80053; 83735; 84100; 84478; 85027; A4216

== ENCOUNTER → 2019-07-26 12:04 | Outpatient (CLI) | payer MEDICARE, MEDICAID, SELFPAY ==
[2019-06-21 13:27] VITALS: BMI 21.5
[2019-07-26 13:13] LABS: Hematocrit 31.5 % (37-47); Hemoglobin 9.7 g/dL (12.0-15.0); Mean Corp Hgb Conc 30.8 g/dL (32-36); Mean Corpuscular Hgb 23.4 pg (27.0-32.0); Mean Corpuscular Volume 76.1 fL (81-99); Mean Platelet Vol. 10.2 fl (6.2-12.0); Platelet Count 275 K/mm3 (150-450); RBC Distribution Width CV 17.8 % (11.6-14.6); RBC Distribution Width SD 48.8 fl (35.1-43.9); Red Blood Count 4.14 M/mm3 (4.2-5.4); White Blood Count 7.4 K/mm3 (4.4-11.0)
[2019-07-26 13:28] LABS: Albumin, Serum 3.6 g/dL (3.2-5.0); BUN 18 mg/dL (7-18); BUN/Creat Ratio 28.6 RATIO (10-20); Creatinine, Serum 0.63 mg/dL (0.55-1.02); EST Glomerular Filtration Rate 112 mL/min (>60); Est Glom Filt Rate - Afr Amer 135 mL/min (>60); Glucose 87 mg/dL (74-106); Protein, Total 7.6 g/dL (6.4-8.2)
[2019-07-26 13:29] LABS: ALB/GLOB Ratio 0.9 RATIO (0.9-2.4); AST(SGOT) 31 U/L (15-37); Alanine Aminotransfer ALT/SGPT 59 U/L (13-56); Alkaline Phosphatase 197 U/L (45-117); Anion Gap 10 (5-15); Calcium,Total 8.6 mg/dL (8.5-10.1); Chloride 109 mmol/L (98-107); Magnesium 2.2 mg/dL (1.6-2.6); Phosphorus 3.8 mg/dL (2.5-4.9); Potassium 3.2 mmol/L (3.5-5.1); Sodium Level 143 mmol/L (136-145); Triglycerides 128 mg/dL
== END ==
PROVIDERS: Family Provider Internal Medicine; PCP Internal Medicine; Visit Provider Physician Assistant
DX: Z45.2 Encounter for adjustment and management of vascular access device (principal); K56.609 Unspecified intestinal obstruction, unspecified as to partial versus complete obstruction; E43 Unspecified severe protein-calorie malnutrition; K31.84 Gastroparesis
CPT/HCPCS: 36592; 80053; 83735; 84100; 84478; 85027; A4216

== ENCOUNTER → 2019-07-28 08:14 | Outpatient (CLI) | payer MEDICARE, MEDICAID, SELFPAY ==
[2019-06-21 13:27] VITALS: BMI 21.5
--- NOTE | 2019-07-28 08:20 | RAD_ITS ---
PROCEDURE: SMALL BOWEL SERIES DATE OF EXAMINATION: July 28, 2019. INDICATION: Female, 39 years old. History of Crohn's disease with the multiple prior bowel resections. Patient presents with abdominal pain and nausea. Prior gastric sleeve surgery. PHYSICIAN: Hebert El M.D. FLUOROSCOPY TIME (if supplied): (0:32) minutes/seconds TECHNIQUE: Radiographic and fluoroscopic images were taken of the small intestine following the ingestion of barium. COMPARISON: None. FINDINGS: A preliminary supine KUB was obtained. There is an unremarkable bowel gas pattern. Fecal material is present throughout the colon. Surgical sutures are seen in the right lower quadrant. Phleboliths are present within the pelvis. The osseous structures are normal. The patient orally ingested approximately 12 ounces of thin barium Normal visualized fundus, body, and antrum of the stomach. Normal duodenal bulb, C-loop, and proximal jejunum. There is evidence of a surgical resection of the distal small bowel. Surgical deformity at the region of the terminal ileum as it enters the cecum. There is no evidence of obstruction. No evidence of narrowing or mucosal abnormality. There is a normal motor pattern with barium reaching the colon within approximately 20 minutes. Spot films under fluoroscopic observation demonstrated a normal terminal ileum and ileocecal valve. RAD/Small Bowel Series Only IMPRESSION: Prior small bowel resection in the distal small bowel with postoperative changes. No acute abnormality is seen. Electronically Signed: Hebert El, at 9:58 EDT , Service support ,
== END ==
PROVIDERS: Family Provider Internal Medicine; PCP Internal Medicine; Referring Provider Internal Medicine Gastroenterology; Visit Provider Internal Medicine Gastroenterology
DX: K50.90 Crohn's disease, unspecified, without complications (principal)
CPT/HCPCS: 74250

== ENCOUNTER → 2019-08-01 08:06 | Outpatient (CLI) | payer MEDICARE, MEDICAID, SELFPAY ==
[2019-06-21 13:27] VITALS: BMI 21.5
[2019-08-01 08:45] LABS: Hematocrit 31.5 % (37-47); Hemoglobin 9.5 g/dL (12.0-15.0); Mean Corp Hgb Conc 30.2 g/dL (32-36); Mean Corpuscular Hgb 23.2 pg (27.0-32.0); Mean Corpuscular Volume 76.8 fL (81-99); Mean Platelet Vol. 10.1 fl (6.2-12.0); Platelet Count 276 K/mm3 (150-450); RBC Distribution Width CV 18.5 % (11.6-14.6); RBC Distribution Width SD 50.4 fl (35.1-43.9); White Blood Count 8.9 K/mm3 (4.4-11.0)
[2019-08-01 09:06] LABS: ALB/GLOB Ratio 0.9 RATIO (0.9-2.4); AST(SGOT) 19 U/L (15-37); Alanine Aminotransfer ALT/SGPT 29 U/L (13-56); Albumin, Serum 3.5 g/dL (3.2-5.0); Alkaline Phosphatase 171 U/L (45-117); Anion Gap 4 (5-15); BUN 16 mg/dL (7-18); BUN/Creat Ratio 25.8 RATIO (10-20); Calcium,Total 8.9 mg/dL (8.5-10.1); Chloride 110 mmol/L (98-107); Creatinine, Serum 0.62 mg/dL (0.55-1.02); EST Glomerular Filtration Rate 114 mL/min (>60); Est Glom Filt Rate - Afr Amer 138 mL/min (>60); Globulin 3.7 g/dL (2.2-4.2); Glucose 84 mg/dL (74-106); Magnesium 1.9 mg/dL (1.6-2.6); Phosphorus 4.4 mg/dL (2.5-4.9); Potassium 3.3 mmol/L (3.5-5.1); Protein, Total 7.2 g/dL (6.4-8.2); Sodium Level 141 mmol/L (136-145); Triglycerides 127 mg/dL
== END ==
PROVIDERS: Family Provider Internal Medicine; PCP Internal Medicine; Referring Provider Physician Assistant; Visit Provider Physician Assistant
DX: Z45.2 Encounter for adjustment and management of vascular access device (principal); K56.609 Unspecified intestinal obstruction, unspecified as to partial versus complete obstruction; K31.84 Gastroparesis; E43 Unspecified severe protein-calorie malnutrition
CPT/HCPCS: 36592; 80053; 83735; 84100; 84478; 85027; A4216

== ENCOUNTER → 2019-08-07 | Outpatient (CLI) | payer MEDICARE, MEDICAID, SELFPAY ==
[2019-06-21 13:27] VITALS: BMI 21.5
[2019-08-07 14:18] LABS: Hematocrit 30.2 % (37-47); Hemoglobin 9.2 g/dL (12.0-15.0); Mean Corp Hgb Conc 30.5 g/dL (32-36); Mean Corpuscular Hgb 23.4 pg (27.0-32.0); Mean Corpuscular Volume 76.8 fL (81-99); Mean Platelet Vol. 10.2 fl (6.2-12.0); Platelet Count 257 K/mm3 (150-450); RBC Distribution Width CV 17.9 % (11.6-14.6); RBC Distribution Width SD 49.7 fl (35.1-43.9); Red Blood Count 3.93 M/mm3 (4.2-5.4); White Blood Count 6.9 K/mm3 (4.4-11.0)
[2019-08-07 14:35] LABS: ALB/GLOB Ratio 0.8 RATIO (0.9-2.4); AST(SGOT) 18 U/L (15-37); Alanine Aminotransfer ALT/SGPT 39 U/L (13-56); Albumin, Serum 3.2 g/dL (3.2-5.0); Alkaline Phosphatase 182 U/L (45-117); Anion Gap 7 (5-15); BUN 15 mg/dL (7-18); BUN/Creat Ratio 22.8 RATIO (10-20); Calcium,Total 8.4 mg/dL (8.5-10.1); Chloride 108 mmol/L (98-107); Creatinine, Serum 0.66 mg/dL (0.55-1.02); EST Glomerular Filtration Rate 106 mL/min (>60); Est Glom Filt Rate - Afr Amer 129 mL/min (>60); Glucose 117 mg/dL (74-106); Magnesium 2.3 mg/dL (1.6-2.6); Phosphorus 3.6 mg/dL (2.5-4.9); Potassium 3.4 mmol/L (3.5-5.1); Protein, Total 7.2 g/dL (6.4-8.2); Sodium Level 141 mmol/L (136-145); Triglycerides 86 mg/dL
== END | disposition home or self-care (01) ==
LOC: MEDOUTP 13:12
PROVIDERS: Family Provider Internal Medicine; PCP Internal Medicine; Referring Provider Physician Assistant; Visit Provider Physician Assistant
DX: E43 Unspecified severe protein-calorie malnutrition (principal); K56.609 Unspecified intestinal obstruction, unspecified as to partial versus complete obstruction; K31.84 Gastroparesis; Z45.2 Encounter for adjustment and management of vascular access device
CPT/HCPCS: 36592; 80053; 83735; 84100; 84478; 85027; A4216

== ENCOUNTER → 2019-08-14 08:05 | Outpatient (CLI) | payer MEDICARE, MEDICAID, SELFPAY ==
[2019-06-21 13:27] VITALS: BMI 21.5
[2019-08-14 08:39] LABS: Hematocrit 31.1 % (37-47); Hemoglobin 9.5 g/dL (12.0-15.0); Mean Corp Hgb Conc 30.5 g/dL (32-36); Mean Corpuscular Hgb 23.1 pg (27.0-32.0); Mean Corpuscular Volume 75.5 fL (81-99); Mean Platelet Vol. 9.5 fl (6.2-12.0); Platelet Count 289 K/mm3 (150-450); RBC Distribution Width CV 17.7 % (11.6-14.6); RBC Distribution Width SD 48.4 fl (35.1-43.9); Red Blood Count 4.12 M/mm3 (4.2-5.4); White Blood Count 6.9 K/mm3 (4.4-11.0)
[2019-08-14 09:21] LABS: ALB/GLOB Ratio 0.9 RATIO (0.9-2.4); AST(SGOT) 67 U/L (15-37); Alanine Aminotransfer ALT/SGPT 115 U/L (13-56); Albumin, Serum 3.4 g/dL (3.2-5.0); Alkaline Phosphatase 195 U/L (45-117); Anion Gap 9 (5-15); BUN 14 mg/dL (7-18); BUN/Creat Ratio 23.3 RATIO (10-20); Calcium,Total 8.5 mg/dL (8.5-10.1); Chloride 109 mmol/L (98-107); EST Glomerular Filtration Rate 118 mL/min (>60); Est Glom Filt Rate - Afr Amer 143 mL/min (>60); Globulin 3.8 g/dL (2.2-4.2); Glucose 91 mg/dL (74-106); Phosphorus 4.1 mg/dL (2.5-4.9); Potassium 3.2 mmol/L (3.5-5.1); Protein, Total 7.2 g/dL (6.4-8.2); Sodium Level 143 mmol/L (136-145); Triglycerides 93 mg/dL
== END ==
PROVIDERS: Family Provider Internal Medicine; PCP Internal Medicine; Referring Provider Physician Assistant; Visit Provider Physician Assistant
DX: Z45.2 Encounter for adjustment and management of vascular access device (principal); E43 Unspecified severe protein-calorie malnutrition; K56.609 Unspecified intestinal obstruction, unspecified as to partial versus complete obstruction; K31.84 Gastroparesis
CPT/HCPCS: 36592; 80053; 83735; 84100; 84478; 85027; A4216

== ENCOUNTER 2019-08-16 08:11 | Emergency (ER) | payer MEDICARE, MEDICAID, SELFPAY ==
[2019-06-21 13:27] VITALS: BMI 21.5
[2019-08-16 08:12] VITALS: BP 99/40; PULSE 115; RESP 12; TEMP 36.5; O2SAT 100; BMI 20.7
--- NOTE | 2019-08-16 08:45 | ED.VISSUMM ---
- ER Visit Summary Date of Service: 08/16/19 Chief Complaint: Abdominal pain History of Present Illness: The patient is a 39 F history of prior gastroparesis and Crohn's disease. Also history: CA with partial colectomy, appendectomy, hysterectomy and gastric sleeve. Patient states that she started having abdominal pain yesterday morning. Nausea and dry heaves. She has basically because of loose stools from her surgeries. And Crohn's. She states since her gastric sleeve in November of this year she has had intermittent fevers for no apparent reason. She is had 3 different abdominal CAT scans done at this facility this year all of which were basically unremarkable other than some mild inflammation associated with possible Crohn's. She denies any dysuria or hematuria. States the pain is primary or lower quadrants of her abdomen radiates over her left flank. She states since her gastric surgery she is lost 50 pounds currently has a PICC line in her left arm for TPN. Physical Examination: Middle-aged female no acute distress vital signs stable afebrile. Initial blood pressure 940. Heart rate 115. Does not look septic. She does not look severely dehydrated. HEENT exam unremarkable. Neck nontender. Lungs clear to auscultation bilaterally. Heart tachycardic rate about 110 115 no murmur. Abdomen is soft. Nondistended. Normal bowel sounds no peritoneal signs. She does scratch discomfort in the lower abdomen is not reproducibly tender. She has well-healed prior surgical and incisions and scars. He had multiple prior abdominal surgery. Currently there is no signs of obstruction. There is no localizing tenderness. She does have positive bowel sounds. Patient is moving all 4 extremities. No edema. Back nontender. Neurologically she is awake and alert. Test Results: Globin 9.6 which is her baseline chronic anemia. Her hemoglobin normally runs between 9 and 10. Electrolytes unremarkable normal BUN and creatinine. Normal gap. Liver enzymes normal alk phos 166. Lipase 262. Emergency Department Course and Treatment: Patient with a very benign exam complaining of lower quadrant abdominal pain. At this time I do not think she needs any imaging. We will start with lab work. A liter normal saline and iv Zofran. Patient was offered Toradol and initially did not tell me she was allergic to it and said she was allergic. She is allergic to morphine also. Requested Dilaudid which I explained her I did not feel was appropriate for non-verifiable chronic abdominal pain. I do long discussion both the patient and her mother we went over all the test results. Again she is had 3 CAT scans issue that all basically unremarkable. 10 months. And is not been able to find a specific cause. Treatment Plan: Phenergan as needed for nausea. 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 Disposition: dc Impression: Acute on chronic abdominal pain of uncertain etiology History of prior appendectomy, hysterectomy, partial colectomy and gastric sleeve History of Crohn's This note was generated with [employer] dictation software. It may contain incorrect words, spelling, and punctuation that were not noted in review of the chart prior to signing ED Disposition - Plan for ED Patient: Referrals: Bella Chapin MD [Primary Care Provider] -
[2019-08-16] MEDS: 0.9% Normal Saline 1,000 ML 1000 ML IV (08:49)
[2019-08-16] MEDS: Ondansetron 4 MG/2 ML Vial IV ×2 (08:50→09:51)
[2019-08-16 08:51] VITALS: BP 99/40; PULSE 115; RESP 12; TEMP 36.5; O2SAT 100
[2019-08-16 08:57] LABS: Absolute Lymphocyte Count 2.61 X10^3/uL (0.83-4.51); Absolute Neutrophil Count 6.3 X10^3/uL (2.0-7.7); Basophil# 0.06 X10^3/uL; Basophil% 0.6 % (0-1); Eosinophil# 0.18 X10^3/uL; Eosinophils% 1.8 % (0-5); Hematocrit 31.6 % (37-47); Hemoglobin 9.6 g/dL (12.0-15.0); Lymphocyte # 2.61 X10^3/ul (4.0); Lymphocyte % 26.5 % (19-41); Mean Corp Hgb Conc 30.4 g/dL (32-36); Mean Corpuscular Hgb 23.1 pg (27.0-32.0); Mean Platelet Vol. 10.1 fl (6.2-12.0); Monocyte# 0.69 X10^3/uL; NRBC Flagged by Analyzer 0 % (0-5); Neutrophil # 6.28 X10^3/uL (2.7-7.7); Neutrophil % 63.7 % (47-70); Platelet Count 219 K/mm3 (150-450); RBC Distribution Width CV 17.7 % (11.6-14.6); RBC Distribution Width SD 48.3 fl (35.1-43.9); Red Blood Count 4.16 M/mm3 (4.2-5.4); White Blood Count 9.9 K/mm3 (4.4-11.0)
[2019-08-16 09:14] VITALS: BP 99/40; PULSE 115; RESP 12; TEMP 36.5; O2SAT 100
[2019-08-16 09:26] LABS: AST(SGOT) 14 U/L (15-37); Alanine Aminotransfer ALT/SGPT 60 U/L (13-56); Albumin, Serum 3.2 g/dL (3.2-5.0); Alkaline Phosphatase 166 U/L (45-117); Anion Gap 5 (5-15); BUN 18 mg/dL (7-18); BUN/Creat Ratio 40.8 RATIO (10-20); Calcium,Total 8.4 mg/dL (8.5-10.1); Chloride 109 mmol/L (98-107); Creatinine, Serum 0.44 mg/dL (0.55-1.02); EST Glomerular Filtration Rate 169 mL/min (>60); Est Glom Filt Rate - Afr Amer 204 mL/min (>60); Estimated Creatinine Clearance 167.17 ml/min; Glucose 90 mg/dL (74-106); Lipase 262 U/L (73-393); Potassium 3.8 mmol/L (3.5-5.1); Protein, Total 7.2 g/dL (6.4-8.2); Sodium Level 140 mmol/L (136-145)
[2019-08-16 10:00] VITALS: BP 95/62; PULSE 89; RESP 16; TEMP 36.8; O2SAT 99
[2019-08-16 10:12] VITALS: BP 95/62; PULSE 89; RESP 16; TEMP 36.8; O2SAT 99
--- NOTE | 2019-08-16 10:20 | ED.DEP ---
ED Disposition - Plan for ED Patient: Disposition: Home or Assisted Living Instructions: ABDOMINAL PAIN, Unknown Cause, (Female) Prescriptions: proMETHazine tablet [Phenergan tablet] 25 mg PO Q4H PRN PRN #14 tab PRN Reason: Nausea Prescription Printed Referrals: Bella Chapin MD [Primary Care Provider] - As Needed Darren Reno MD [NON-STAFF] - As soon as possible Additional Instructions: Phenergan needed for nausea. 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
[2019-08-16] MEDS: proMETHazine 25 MG/ML Syringe 12.5 MG IV (10:30)
== END 2019-08-16 10:39 | disposition home or self-care (01) ==
PROVIDERS: Emergency Provider Emergency Medicine; Family Provider Internal Medicine; PCP Internal Medicine
DX: G89.29 Other chronic pain (principal); R10.9 Unspecified abdominal pain; K31.84 Gastroparesis; K50.90 Crohn's disease, unspecified, without complications; Z90.710 Acquired absence of both cervix and uterus; Z90.49 Acquired absence of other specified parts of digestive tract; Z85.038 Personal history of other malignant neoplasm of large intestine
CPT/HCPCS: 36592; 80048; 80076; 83690; 85025; 96361; 96374; 96375; 96376; 99282; J7030; A4216; J2405

== ENCOUNTER → 2019-08-25 12:02 | Outpatient (CLI) | payer MEDICARE, SELFPAY ==
[2019-08-16 08:12] VITALS: BMI 20.7
[2019-08-25 12:47] LABS: Hematocrit 30.6 % (37-47); Hemoglobin 9.2 g/dL (12.0-15.0); Mean Corp Hgb Conc 30.1 g/dL (32-36); Mean Corpuscular Hgb 23.4 pg (27.0-32.0); Mean Corpuscular Volume 77.9 fL (81-99); Mean Platelet Vol. 9.4 fl (6.2-12.0); POSITIVE MORPHOLOGY YES; Platelet Count 337 K/mm3 (150-450); RBC Distribution Width CV 20.8 % (11.6-14.6); Red Blood Count 3.93 M/mm3 (4.2-5.4); White Blood Count 10.7 K/mm3 (4.4-11.0)
[2019-08-25 13:04] LABS: AST(SGOT) 18 U/L (15-37); Alanine Aminotransfer ALT/SGPT 68 U/L (13-56); Albumin, Serum 3.3 g/dL (3.2-5.0); Alkaline Phosphatase 117 U/L (45-117); Anion Gap 6 (5-15); BUN 23 mg/dL (7-18); BUN/Creat Ratio 42.7 RATIO (10-20); Calcium,Total 8.5 mg/dL (8.5-10.1); Chloride 109 mmol/L (98-107); Creatinine, Serum 0.54 mg/dL (0.55-1.02); EST Glomerular Filtration Rate 134 mL/min (>60); Est Glom Filt Rate - Afr Amer 162 mL/min (>60); Globulin 3.2 g/dL (2.2-4.2); Glucose 85 mg/dL (74-106); Phosphorus 4.8 mg/dL (2.5-4.9); Potassium 3.4 mmol/L (3.5-5.1); Protein, Total 6.5 g/dL (6.4-8.2); Sodium Level 143 mmol/L (136-145); Triglycerides 222 mg/dL
[2019-08-25 13:20] LABS: Scan Indicated on CBC? Y/N YES- FLAGS NOTED
== END ==
PROVIDERS: Family Provider Internal Medicine; PCP Internal Medicine; Referring Provider Physician Assistant; Visit Provider Physician Assistant
DX: Z45.2 Encounter for adjustment and management of vascular access device (principal); K56.609 Unspecified intestinal obstruction, unspecified as to partial versus complete obstruction; E43 Unspecified severe protein-calorie malnutrition; K31.84 Gastroparesis
CPT/HCPCS: 36592; 80053; 83735; 84100; 84478; 85027; A4216

== ENCOUNTER → 2019-08-25 14:59 | Outpatient (CLI) | payer MEDICARE, MEDICAID, SELFPAY ==
[2019-08-25 14:02] VITALS: BMI 20.7
[2019-08-25 16:17] LABS: Amphetamine Urine VISTA NEGATIVE (<1000 ng/mL); Barbiturate Urine VISTA NEGATIVE (< 200 ng/mL); Benzodiazepine Urine VISTA NEGATIVE (< 200 ng/mL); Cocaine Urine VISTA NEGATIVE (< 300 ng/mL); Ecstacy Urine VISTA POSITIVE (< 500 ng/mL); Methadone Urine VISTA NEGATIVE (< 300 ng/mL); PCP Urine VISTA NEGATIVE (< 25 ng/mL); THC Urine VISTA NEGATIVE (< 50 ng/mL); Vista UDS pH Range 5
== END ==
PROVIDERS: Family Provider Internal Medicine; PCP Internal Medicine; Referring Provider Nurse Practitioner Family; Visit Provider Nurse Practitioner Family
DX: F11.90 Opioid use, unspecified, uncomplicated (principal); K31.84 Gastroparesis; E43 Unspecified severe protein-calorie malnutrition; K56.609 Unspecified intestinal obstruction, unspecified as to partial versus complete obstruction
CPT/HCPCS: 36592; 80053; 80307; 83735; 84100; 84478; 85027; A4216

== ENCOUNTER → 2019-08-30 11:42 | Outpatient (CLI) | payer MEDICARE, SELFPAY ==
[2019-08-16 08:12] VITALS: BMI 20.7
[2019-08-25 14:02] VITALS: BMI 20.7
[2019-08-30 12:50] LABS: Hematocrit 30.8 % (37-47); Hemoglobin 9.3 g/dL (12.0-15.0); Mean Corp Hgb Conc 30.2 g/dL (32-36); Mean Corpuscular Hgb 24.2 pg (27.0-32.0); Mean Corpuscular Volume 80.2 fL (81-99); Mean Platelet Vol. 9.1 fl (6.2-12.0); POSITIVE MORPHOLOGY YES; Platelet Count 279 K/mm3 (150-450); RBC Distribution Width CV 23.6 % (11.6-14.6); RBC Distribution Width SD 65.4 fl (35.1-43.9); Red Blood Count 3.84 M/mm3 (4.2-5.4); White Blood Count 8.2 K/mm3 (4.4-11.0)
[2019-08-30 12:51] LABS: Scan Indicated on CBC? Y/N YES- FLAGS NOTED
[2019-08-30 13:07] LABS: ALB/GLOB Ratio 0.9 RATIO (0.9-2.4); AST(SGOT) 8 U/L (15-37); Alanine Aminotransfer ALT/SGPT 23 U/L (13-56); Albumin, Serum 3.2 g/dL (3.2-5.0); Alkaline Phosphatase 103 U/L (45-117); Anion Gap 5 (5-15); BUN 11 mg/dL (7-18); BUN/Creat Ratio 26.8 RATIO (10-20); Calcium,Total 8.4 mg/dL (8.5-10.1); Chloride 112 mmol/L (98-107); Creatinine, Serum 0.41 mg/dL (0.55-1.02); EST Glomerular Filtration Rate 183 mL/min (>60); Est Glom Filt Rate - Afr Amer 221 mL/min (>60); Globulin 3.5 g/dL (2.2-4.2); Glucose 80 mg/dL (74-106); Phosphorus 3.9 mg/dL (2.5-4.9); Potassium 3.6 mmol/L (3.5-5.1); Protein, Total 6.7 g/dL (6.4-8.2); Sodium Level 143 mmol/L (136-145); Triglycerides 188 mg/dL
== END ==
PROVIDERS: Family Provider Internal Medicine; PCP Internal Medicine; Referring Provider Physician Assistant; Visit Provider Physician Assistant
DX: Z45.2 Encounter for adjustment and management of vascular access device (principal); K56.609 Unspecified intestinal obstruction, unspecified as to partial versus complete obstruction; K31.84 Gastroparesis; E43 Unspecified severe protein-calorie malnutrition
CPT/HCPCS: 36592; 80053; 83735; 84100; 84478; 85027; A4216

== ENCOUNTER 2019-08-30 12:42 | Emergency (ER) | payer MEDICARE, MEDICAID, SELFPAY ==
[2019-08-25 14:02] VITALS: BMI 20.7
[2019-08-30 12:44] VITALS: BP 117/65; PULSE 102; RESP 17; TEMP 36.5; O2SAT 100; BMI 20.5
--- NOTE | 2019-08-30 13:10 | RAD_ITS ---
STUDY: X-RAY - ACUTE ABDOMINAL SERIES REASON FOR EXAM: Female, 39 years old. Abdominal distention. Vomiting. TECHNIQUE: Single view of the chest. Supine, and erect view(s) of the abdomen were obtained. COMPARISON: None. FINDINGS: The lungs are clear and expanded. Scattered calcified granulomas. Normal size heart. Normal mediastinum and bong. Normal visualized pulmonary arteries. Normal visualized aortic arch and descending thoracic aorta. There is a non-specific bowel gas pattern. There are multiple calcified phleboliths. Normal visualized osseous structures. RAD/Acute Abdomen Inc Chest IMPRESSION: Phleboliths are seen in the pelvis. Electronically Signed: Hebert El, at 14:12 EST , Service support ,
--- NOTE | 2019-08-30 13:11 | ED.DCSUM_ITS ---
History of Present Illness Chief Complaint: Abd Pain Detail of Chief Complaint: Nausea, vomiting and increased bowel movement Informant: Patient Onset: Today Context: Sudden Onset Timing: Continuous Quality: Pain Location: Abdomen generalized Current Severity: Mild Maximum Severity: Moderate Worsened by: Movement, Relieved by: Nothing Associated Symptoms: Previously mentioned Narrative: 39-year-old woman with history of Crohn's disease. He had endoscopy performed yesterday as an outpatient by Dr. Darren Reno. She presents because of increased pain with nausea vomiting and increased bowel movement. States her bowel movement is yellow-green in color. Her bowel movements now formed. There was no blood or mucus. She states there were multiple biopsy sites. He states that she was told there is mild flare of Crohn's disease. There is a history of gastroparesis. Patient underwent surgery for presumed obstruction. It was determined that she has anemia. She has had a gastric sleeve performed by Dr. Hennessy at [facility]. She denies fever, chills or night sweats. She denies respiratory or cardiac symptoms. She denies urologic symptoms. She does receive TPN. Prior similar symptoms: Yes Recent Illness/Hospitalization: Yes - Past Medical History (1) Anemia Status: Acute (2) Cancer Status: Acute Comment: Colon (3) Crohns disease Status: Chronic (4) GERD (gastroesophageal reflux disease) Status: Chronic Past Medical History - Allergies and Home Meds Allergies/Adverse Reactions: Allergies penicillin G Allergy (Severe, Verified 08/30/19 12:43) Vomiting tramadol Allergy (Severe, Verified 08/30/19 12:43) Vomiting amoxicillin [From Augmentin] Allergy (Verified 08/30/19 12:43) Anaphylaxis azathioprine Allergy (Verified 08/30/19 12:43) Other clavulanic acid [From Augmentin] Allergy (Verified 08/30/19 12:43) Anaphylaxis codeine Allergy (Verified 08/30/19 12:43) Other ketorolac Allergy (Verified 08/30/19 12:43) Hives levofloxacin [From Levaquin] Allergy (Verified 08/30/19 12:43) Anaphylaxis morphine Allergy (Verified 08/30/19 13:24) Hives Primary Care Physician: Bella Chapin MD [Primary Care Provider] - Prior records reviewed: Yes Surgical History: - - Bowel resection with gastric sleeve Lives: Alone Smoking Status: Never smoker Alcohol: None Drugs: None Review of Systems General: Reports: Malaise. Denies: Chills, Fever, Sweats Eyes: Denies: Visual changes - bilaterally, Blurred Vision - bilaterally ENT: Denies: Bilateral ear pain, Rhinorrhea, Sore throat Cardiovascular: Denies: Chest pain, Palpitations Respiratory: Denies: Dyspnea, Cough, Dyspnea on exertion Gastrointestinal: Reports: Abdominal pain, Nausea, Vomiting, Diarrhea. Denies: Constipation, Melena, Hematochezia Genitourinary: Denies: Dysuria, Hematuria, Frequency Musculoskeletal: Denies: Myalgias, Arthralgias, Neck pain, Back pain, Swelling, Extremity Pain, -, - Neurological: Reports: Weakness. Denies: Headache, Parasthesia, Numbness Endocrine: Denies: Polyuria, Polydipsia Hematologic: Denies: Easy bruising, Easy bleeding Physical Exam Vital Signs/Narrative: Vital Signs Temp Pulse Resp BP Pulse Ox 08/30/19 12:44 97.7 F L 102 H 17 117/65 100 Inital Vital Signs reviewed: Yes General: Well nourished, Well developed, No Acute Distress Head: Normocephalic, Atraumatic Eyes: Perrl, EOMI ENT: No rhinorrhea, Dry mucous membranes Neck: Supple, Nontender, No lymphadenopathy, No JVD Cardiovascular: Regular rate, Regular rhythm, No murmurs, Normal S1, Normal S2 Respiratory: No distress, CTA bilaterally, Chest nontender Abdomen: Soft, No masses, Tender, Guarding, Hypoactive bowel sounds, - - Distended and tympanitic throughout.. Negative for: Rebound tenderness, Hepatomegaly, Splenomegaly, Mass, Pulsatile mass, Ventral hernia, Inguinal hernia, Umbilical hernia Rectal: Deferred Back: Nontender, Normal Inspection Extremities: Nontender, No edema Skin: Normal color, No rash Neurological: Alert, Oriented x3, Cranial nerves II-XII grossly intact, Normal Strength, Normal Sensation Psychological: Normal affect, Normal Mood Diagnostic/Tx/Re-eval Chest X-Ray - ED: Read by ED Physician, Read by Radiologist, Normal, Heart, Lungs, Mediastinum, Bony Structures, No Acute Disease, - - X-ray reviewed by me. Read by radiologist prior to my interpretation which revealed no acute pathology. Impressions Acute Abdomen Series 08/30/19 13:10 IMPRESSION: Phleboliths are seen in the pelvis. Electronically Signed: Hebert El, at 14:12 EST , Service support , 08/30/19 13:10 Acute Abdomen Inc Chest [RAD] Stat Laboratory Results 08/30/19 08/30/19 13:10 13:10 WBC 9.1 RBC 3.96 L Hgb 9.6 L Hct 31.7 L MCV 80.1 L MCH 24.2 L MCHC 30.3 L RDW Std Deviation 66.1 H RDW Coeff of Sandra 23.4 H Plt Count 293 MPV 8.8 Immature Gran % (Auto) 0.400 Neut % (Auto) 63.1 Lymph % (Auto) 29.6 [place] % (Auto) 4.6 Eos % (Auto) 2.0 Baso % (Auto) 0.3 Absolute Neuts (auto) 5.7 Absolute Lymphs (auto) 2.68 Nucleated RBC % 0 Anisocytosis 1+ Sodium 142 Potassium 3.5 Chloride 111 H Carbon Dioxide 26.0 Anion Gap 5 BUN 12 Creatinine 0.42 L Estim Creat Clear Calc 173.84 Est GFR (MDRD) Af Amer 214 Est GFR (MDRD) Non-Af 177 BUN/Creatinine Ratio 28.4 H Glucose 75 Calcium 8.6 Total Bilirubin 0.60 Direct Bilirubin 0.16 AST 6 L ALT 24 Alkaline Phosphatase 109 Total Protein 6.9 Albumin 3.3 Globulin 3.6 Lipase 162 - Medical Decision Making Basic blood work, chest x-ray was obtained. She was medicated with Zofran and morphine for her nausea and pain. Abdominal series was obtained to assess for partial small bowel obstruction. Also to evaluate for pneumoperitoneum since she had multiple biopsies performed. Case was discussed Dr. Reno. He informed me there was no evidence of acute Crohn's disease noted yesterday. He also informed me that she called him 2 hours after asking for pain medicine. He informed her that he did not feel comfortable prescribing pain medicine and had no reason for her to have pain. Since patient's work-up is negative and there was no active pathology noted on endoscopy patient was discharged to home to follow-up with her primary care physician and surgeon as needed. ED Disposition - Plan for ED Patient: Disposition: Home or Assisted Living Diagnosis: Abdominal pain of unknown etiology, History of Crohn's disease Instructions: ABDOMINAL PAIN, Unknown Cause, (Female) Referrals: Bella Chapin MD [Primary Care Provider] - 1-2 Days if not improving
[2019-08-30 13:21] LABS: Absolute Lymphocyte Count 2.68 X10^3/uL (0.83-4.51); Absolute Neutrophil Count 5.7 X10^3/uL (2.0-7.7); Basophil# 0.03 X10^3/uL; Basophil% 0.3 % (0-1); Eosinophil# 0.18 X10^3/uL; Hematocrit 31.7 % (37-47); Hemoglobin 9.6 g/dL (12.0-15.0); Lymphocyte # 2.68 X10^3/ul (4.0); Lymphocyte % 29.6 % (19-41); Mean Corp Hgb Conc 30.3 g/dL (32-36); Mean Corpuscular Hgb 24.2 pg (27.0-32.0); Mean Corpuscular Volume 80.1 fL (81-99); Mean Platelet Vol. 8.8 fl (6.2-12.0); Monocyte# 0.42 X10^3/uL; Monocyte% 4.6 % (0-10); NRBC Flagged by Analyzer 0 % (0-5); Neutrophil # 5.71 X10^3/uL (2.7-7.7); Neutrophil % 63.1 % (47-70); POSITIVE MORPHOLOGY YES; Platelet Count 293 K/mm3 (150-450); RBC Distribution Width CV 23.4 % (11.6-14.6); RBC Distribution Width SD 66.1 fl (35.1-43.9); Red Blood Count 3.96 M/mm3 (4.2-5.4); White Blood Count 9.1 K/mm3 (4.4-11.0)
[2019-08-30] MEDS: 0.9% Normal Saline 1,000 ML 1000 ML IV (13:25)
[2019-08-30] MEDS: Ondansetron 4 MG/2 ML Vial IV (13:25)
[2019-08-30 13:33] LABS: Differential Indicated SCAN CRITERIA MET
[2019-08-30 13:40] LABS: AST(SGOT) 6 U/L (15-37); Alanine Aminotransfer ALT/SGPT 24 U/L (13-56); Albumin, Serum 3.3 g/dL (3.2-5.0); Alkaline Phosphatase 109 U/L (45-117); Anion Gap 5 (5-15); BUN 12 mg/dL (7-18); BUN/Creat Ratio 28.4 RATIO (10-20); Bilirubin, Direct 0.16 mg/dL (0.00-0.30); Calcium,Total 8.6 mg/dL (8.5-10.1); Chloride 111 mmol/L (98-107); Creatinine, Serum 0.42 mg/dL (0.55-1.02); EST Glomerular Filtration Rate 177 mL/min (>60); Est Glom Filt Rate - Afr Amer 214 mL/min (>60); Estimated Creatinine Clearance 173.84 ml/min; Globulin 3.6 g/dL (2.2-4.2); Glucose 75 mg/dL (74-106); Lipase 162 U/L (73-393); Potassium 3.5 mmol/L (3.5-5.1); Protein, Total 6.9 g/dL (6.4-8.2); Sodium Level 142 mmol/L (136-145)
[2019-08-30 13:42] LABS: Anisocytosis 1+
[2019-08-30 14:24] LABS: Red Blood Cells-Urine 0 SEEN /hpf (0-5)
[2019-08-30 14:27] LABS: Color, Urine Yellow (Yellow); Glucose, Dipstick Normal (Normal); Ketone-Dipstick Negative (Negative); Leukocyte Esterase-Dipstick 100 /ul (Negative); Nitrite-Dipstick Negative (Negative); Occult Blood-Urine Negative /ul (Negative); Protein-Dipstick Negative (Negative); Urine Bilirubin Dipstick Negative (Negative); Urine Clarity Clear (Clear); Urine Urobilinogen Normal (Normal)
[2019-08-30 14:29] VITALS: BP 132/67; PULSE 71; RESP 15; O2SAT 98
[2019-08-30 14:38] LABS: Bacteria RARE /hpf (None Seen); Mucous, Urine 1+ /hpf (<or=2+); Squamous Epithelial Cells - UA 0-5 SEEN /hpf (5-10); White Blood Cells 0-5 SEEN /hpf (0-5)
== END 2019-08-30 14:30 | disposition home or self-care (01) ==
PROVIDERS: Emergency Provider Emergency Medicine; Family Provider Internal Medicine; PCP Internal Medicine
DX: R10.9 Unspecified abdominal pain (principal); K50.90 Crohn's disease, unspecified, without complications; D64.9 Anemia, unspecified; K21.9 Gastro-esophageal reflux disease without esophagitis; Z88.0 Allergy status to penicillin; Z88.1 Allergy status to other antibiotic agents; Z88.5 Allergy status to narcotic agent; Z88.8 Allergy status to other drugs, medicaments and biological substances
CPT/HCPCS: 36592; 74022; 80048; 80053; 80076; 81001; 83690; 83735; 84100; 84478; 85025; 85027; 96361; 96374; 96375; 99283; J7030; A4216; J2405

== ENCOUNTER → 2019-09-20 12:34 | Outpatient (CLI) | payer MEDICARE, MEDICAID, SELFPAY ==
[2019-08-30 12:44] VITALS: BMI 20.5
[2019-09-20 13:26] LABS: Hematocrit 32.4 % (37-47); Mean Corp Hgb Conc 30.9 g/dL (32-36); Mean Corpuscular Hgb 25.4 pg (27.0-32.0); Mean Corpuscular Volume 82.2 fL (81-99); Mean Platelet Vol. 9.5 fl (6.2-12.0); POSITIVE MORPHOLOGY YES; Platelet Count 288 K/mm3 (150-450); RBC Distribution Width CV 21.2 % (11.6-14.6); RBC Distribution Width SD 62.7 fl (35.1-43.9); Red Blood Count 3.94 M/mm3 (4.2-5.4)
[2019-09-20 13:54] LABS: ALB/GLOB Ratio 1.1 RATIO (0.9-2.4); AST(SGOT) 9 U/L (15-37); Alanine Aminotransfer ALT/SGPT 21 U/L (13-56); Albumin, Serum 3.3 g/dL (3.2-5.0); Alkaline Phosphatase 109 U/L (45-117); Anion Gap 7 (5-15); BUN 8 mg/dL (7-18); BUN/Creat Ratio 14.8 RATIO (10-20); Calcium,Total 8.3 mg/dL (8.5-10.1); Chloride 112 mmol/L (98-107); Creatinine, Serum 0.54 mg/dL (0.55-1.02); EST Glomerular Filtration Rate 133 mL/min (>60); Est Glom Filt Rate - Afr Amer 161 mL/min (>60); Globulin 3.1 g/dL (2.2-4.2); Glucose 77 mg/dL (74-106); Potassium 2.9 mmol/L (3.5-5.1); Protein, Total 6.4 g/dL (6.4-8.2); Sodium Level 146 mmol/L (136-145); Triglycerides 123 mg/dL
[2019-09-20 13:57] LABS: Scan Indicated on CBC? Y/N YES- FLAGS NOTED
== END ==
PROVIDERS: Family Provider Internal Medicine; PCP Internal Medicine; Referring Provider Physician Assistant; Visit Provider Physician Assistant
DX: K56.609 Unspecified intestinal obstruction, unspecified as to partial versus complete obstruction (principal); K31.84 Gastroparesis; E43 Unspecified severe protein-calorie malnutrition; Z45.2 Encounter for adjustment and management of vascular access device
CPT/HCPCS: 36592; 80053; 83735; 84100; 84478; 85027; A4216

== ENCOUNTER → 2019-10-31 09:45 | Outpatient (CLI) | payer MEDICARE, MEDICAID, SELFPAY ==
[2019-09-22 11:42] VITALS: BMI 19.9
[2019-10-31 10:44] LABS: Hematocrit 31.5 % (37-47); Hemoglobin 9.7 g/dL (12.0-15.0); Mean Corp Hgb Conc 30.8 g/dL (32-36); Mean Corpuscular Hgb 25.7 pg (27.0-32.0); Mean Corpuscular Volume 83.3 fL (81-99); Mean Platelet Vol. 8.5 fl (6.2-12.0); Platelet Count 357 K/mm3 (150-450); RBC Distribution Width CV 17.2 % (11.6-14.6); RBC Distribution Width SD 51.8 fl (35.1-43.9); Red Blood Count 3.78 M/mm3 (4.2-5.4); White Blood Count 6.9 K/mm3 (4.4-11.0)
[2019-10-31 11:07] LABS: ALB/GLOB Ratio 0.7 RATIO (0.9-2.4); AST(SGOT) 7 U/L (15-37); Alanine Aminotransfer ALT/SGPT 21 U/L (13-56); Albumin, Serum 2.8 g/dL (3.2-5.0); Alkaline Phosphatase 127 U/L (45-117); Anion Gap 6 (5-15); BUN 13 mg/dL (7-18); BUN/Creat Ratio 22.6 RATIO (10-20); Calcium,Total 8.3 mg/dL (8.5-10.1); Chloride 109 mmol/L (98-107); Creatinine, Serum 0.58 mg/dL (0.55-1.02); EST Glomerular Filtration Rate 124 mL/min (>60); Est Glom Filt Rate - Afr Amer 150 mL/min (>60); Globulin 3.8 g/dL (2.2-4.2); Glucose 117 mg/dL (74-106); Potassium 2.7 mmol/L (3.5-5.1); Protein, Total 6.6 g/dL (6.4-8.2); Sodium Level 143 mmol/L (136-145); Triglycerides 231 mg/dL
== END ==
PROVIDERS: PCP Internal Medicine; Referring Provider Physician Assistant; Visit Provider Physician Assistant
DX: K56.609 Unspecified intestinal obstruction, unspecified as to partial versus complete obstruction (principal); E43 Unspecified severe protein-calorie malnutrition; K31.84 Gastroparesis; Z45.2 Encounter for adjustment and management of vascular access device
CPT/HCPCS: 36415; 36592; 80053; 83735; 84100; 84478; 85027; A4216

== ENCOUNTER → 2019-11-09 | Outpatient (CLI) | payer MEDICARE, MEDICAID, SELFPAY ==
[2019-09-22 11:42] VITALS: BMI 19.9
[2019-11-09 11:20] LABS: Hematocrit 31.2 % (37-47); Hemoglobin 9.5 g/dL (12.0-15.0); Mean Corp Hgb Conc 30.4 g/dL (32-36); Mean Corpuscular Hgb 25.1 pg (27.0-32.0); Mean Corpuscular Volume 82.3 fL (81-99); Mean Platelet Vol. 9.5 fl (6.2-12.0); Platelet Count 258 K/mm3 (150-450); RBC Distribution Width CV 16.9 % (11.6-14.6); RBC Distribution Width SD 50.8 fl (35.1-43.9); Red Blood Count 3.79 M/mm3 (4.2-5.4); White Blood Count 7.8 K/mm3 (4.4-11.0)
[2019-11-09 11:39] LABS: ALB/GLOB Ratio 0.6 RATIO (0.9-2.4); AST(SGOT) 8 U/L (15-37); Alanine Aminotransfer ALT/SGPT 15 U/L (13-56); Alkaline Phosphatase 135 U/L (45-117); Anion Gap 5 (5-15); BUN 11 mg/dL (7-18); Calcium,Total 8.6 mg/dL (8.5-10.1); Chloride 109 mmol/L (98-107); Creatinine, Serum 0.52 mg/dL (0.55-1.02); EST Glomerular Filtration Rate 138 mL/min (>60); Est Glom Filt Rate - Afr Amer 167 mL/min (>60); Globulin 4.7 g/dL (2.2-4.2); Glucose 103 mg/dL (74-106); Phosphorus 4.4 mg/dL (2.5-4.9); Potassium 3.6 mmol/L (3.5-5.1); Protein, Total 7.7 g/dL (6.4-8.2); Sodium Level 138 mmol/L (136-145); Triglycerides 101 mg/dL
== END | disposition home or self-care (01) ==
PROVIDERS: PCP Internal Medicine
DX: E43 Unspecified severe protein-calorie malnutrition (principal); K56.609 Unspecified intestinal obstruction, unspecified as to partial versus complete obstruction; K31.84 Gastroparesis; Z45.2 Encounter for adjustment and management of vascular access device
CPT/HCPCS: 36592; 80053; 83735; 84100; 84478; 85027; A4216

== ENCOUNTER → 2019-11-13 | Outpatient (CLI) | payer MEDICARE, MEDICAID, SELFPAY ==
[2019-09-22 11:42] VITALS: BMI 19.9
[2019-11-13 13:57] LABS: Hematocrit 30.5 % (37-47); Hemoglobin 9.2 g/dL (12.0-15.0); Mean Corp Hgb Conc 30.2 g/dL (32-36); Mean Corpuscular Hgb 24.7 pg (27.0-32.0); Mean Corpuscular Volume 81.8 fL (81-99); Mean Platelet Vol. 9.7 fl (6.2-12.0); Platelet Count 337 K/mm3 (150-450); RBC Distribution Width CV 16.2 % (11.6-14.6); RBC Distribution Width SD 48.2 fl (35.1-43.9); Red Blood Count 3.73 M/mm3 (4.2-5.4); White Blood Count 6.4 K/mm3 (4.4-11.0)
[2019-11-13 14:10] LABS: ALB/GLOB Ratio 0.7 RATIO (0.9-2.4); AST(SGOT) 8 U/L (15-37); Alanine Aminotransfer ALT/SGPT 17 U/L (13-56); Albumin, Serum 2.9 g/dL (3.2-5.0); Alkaline Phosphatase 135 U/L (45-117); Anion Gap 3 (5-15); BUN 8 mg/dL (7-18); Calcium,Total 8.3 mg/dL (8.5-10.1); Chloride 110 mmol/L (98-107); Creatinine, Serum 0.57 mg/dL (0.55-1.02); EST Glomerular Filtration Rate 124 mL/min (>60); Est Glom Filt Rate - Afr Amer 151 mL/min (>60); Globulin 4.3 g/dL (2.2-4.2); Glucose 107 mg/dL (74-106); Phosphorus 3.2 mg/dL (2.5-4.9); Protein, Total 7.2 g/dL (6.4-8.2); Sodium Level 142 mmol/L (136-145); Triglycerides 79 mg/dL
== END | disposition home or self-care (01) ==
LOC: MEDOUTP 13:10
PROVIDERS: PCP Internal Medicine
DX: E43 Unspecified severe protein-calorie malnutrition (principal); K56.609 Unspecified intestinal obstruction, unspecified as to partial versus complete obstruction; K31.84 Gastroparesis; Z45.2 Encounter for adjustment and management of vascular access device
CPT/HCPCS: 36592; 80053; 83735; 84100; 84478; 85027; A4216